=== PATIENT | male | born 1975 | race Two or more races ===

== ENCOUNTER → 2020-07-06 09:50 | Outpatient (BNVA) | payer OTHER, MEDICAID, SELFPAY | PROVIDERS: PCP Internal Medicine; Visit Provider Anesthesiology | DX: M79.7 Fibromyalgia (principal); M47.812 Spondylosis without myelopathy or radiculopathy, cervical region; M47.816 Spondylosis without myelopathy or radiculopathy, lumbar region | CPT/HCPCS: 99203 ==

== ENCOUNTER → 2020-08-03 10:33 | Outpatient (BNVA) | payer OTHER, MEDICAID, SELFPAY | PROVIDERS: PCP Internal Medicine; Visit Provider Anesthesiology | DX: M79.7 Fibromyalgia (principal); M47.812 Spondylosis without myelopathy or radiculopathy, cervical region; M47.816 Spondylosis without myelopathy or radiculopathy, lumbar region | CPT/HCPCS: 99212 ==

== ENCOUNTER → 2020-11-03 09:43 | Outpatient (BNVA) | payer OTHER, MEDICAID, SELFPAY | PROVIDERS: PCP Internal Medicine; Visit Provider Urology ==

== ENCOUNTER 2020-11-13 08:35 | Day surgery (SDC) | payer OTHER, SELFPAY ==
--- NOTE | 2020-11-12 09:35 | HO.ANESPROP2 ---
Documented by User: Subha Nichole 11/12/20 09:51 HPI - Anesthesia Eval Consult details Narrative: 45yo M for Spinal Cord Simulation Trial, [facility] Active Problems Active Problems: All Active Problems (Updated 11/03/20 @ 09:58 by Natalio Todd MD) Male infertility (Acute) Hypogonadism in male (Acute) History of hip surgery (Acute) Bipolar 1 disorder (Acute) Spondylosis of lumbar region without myelopathy or radiculopathy (Acute) Spondylosis of cervical region without myelopathy or radiculopathy (Acute) Fibromyalgia (Acute) Past Medical History Medical History Bipolar 1 disorder Chronic headaches Diastolic dysfunction Fibromyalgia Hepatic steatosis HTN (hypertension) Hypertriglyceridemia Hypogonadism in male IBS (irritable bowel syndrome) IDDM (insulin dependent diabetes mellitus) Obesity DANIE (obstructive sleep apnea) Psychogenic nonepileptic seizure Smoker 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 Surgical History Surgical History History of hip surgery Social History Social History Smoking Status: Current every day smoker Packs Per Day: 1 Cigarettes Per Day: 20.0 Use of substances other than those prescribed or required for medical reasons: No Advance Directives: No Advance Directives Information Provided: Yes Meds Allergies Allergy/AdvReac Type Severity Reaction Status Date / Time shell fish Allergy Unknown Unknown Uncoded 11/03/20 09:44 Exam Exam Date and Time: November 12, 2020 0935 Assessment and Plan Assessment Anesthesia Assessment: Chart Reviewed Documented by User: Demi Chaidez 11/13/20 11:07 PMFSH Past Medical History Medical History Bipolar 1 disorder Chronic headaches Diastolic dysfunction Fibromyalgia Hepatic steatosis HTN (hypertension) Hypertriglyceridemia Hypogonadism in male IBS (irritable bowel syndrome) IDDM (insulin dependent diabetes mellitus) Obesity DANIE (obstructive sleep apnea) Psychogenic nonepileptic seizure Smoker 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
--- NOTE | ~2020-11-13 | FL_ITS ---
EXAMINATION: XR FLUOROSCOPY WITH IMAGES CLINICAL INFORMATION: Spinal stim trial COMPARISON: None. TECHNIQUE: Fluoroscopy performed by . Fluoroscopy time: 2.9 minutes DAP: 18.7 mGycm2 Images: 4 FINDINGS: FINDINGS: Intraoperative fluoroscopy was provided for use by Dr. Larson. A radiologist was not present during imaging. Today's dictation is only for administrative purposes to document intraoperative fluoroscopy. FL/FL guidance in OR IMPRESSION: Intraoperative fluoroscopy provided for use by Dr. Larson. Please see procedure note for details findings.
[2020-11-13 10:16] VITALS: BMI 27.8
[2020-11-13 10:31] LABS: Glucose, Whole Blood 95 mg/dL (60-115)
--- NOTE | 2020-11-13 10:43 | MHC.SHP ---
Pre-Procedural Eval Section A The patient is an INPATIENT: No Changes since office visit: Yes Patient answered all questions The History & Physical has been completed within 30 days and I have reviewed it.: No Section B Chief Complaint: spondylosis without myelopathy Details of Present Illness: As above Relevant Family History (Specify if Yes): No Relevant Social History: None Present Medications: see Short Stay Collaborative assessment Medical History: No relevant PMH History of Previous Operations: No relevant previous surgery Allergies: Allergies Allergy/AdvReac Type Severity Reaction Status Date / Time shell fish Allergy Unknown Unknown Uncoded 11/03/20 09:44 Review of Systems Sugical H&P ROS: Negative: Constitution, Cardiovascular, Respiratory, Neurological, Psychiatric, Hem-Onc, Allergic/Immunologic, Gastrointestinal, Genitourinary, Musculoskeletal, Integumentary, Endocrine and Eyes/Ears/Nose/Throat Exam Surgical H&P Exam: Normal: HEENT, Normal: Heart, Normal: Lungs, Normal: Extremities, Normal: Abdomen, Normal: Skin and Normal: Neurological Plan Diagnosis/Plan: Unchanged I have reviewed the history and physical and performed a pertinent physical examination on my patient. No changes have occurred unless specified.
[2020-11-13 10:44] VITALS: BP 150/82; PULSE 106; RESP 18; TEMP 36.4; O2SAT 100
[2020-11-13] MEDS: Lactated Ringers 1,000 ML 100 ML IVCONT (12:26)
[2020-11-13 13:47] VITALS: BP 147/90; PULSE 100; RESP 18; TEMP 36.6; O2SAT 98
--- NOTE | 2020-11-13 13:57 | PM.OP ---
Brief Operative Note Date of Service: 11/13/20 Pre-op diagnosis: Radiculopathy lumbar spine Post-op diagnosis: same Procedure: Trial of [employer] spinal cord stimulation Surgeon: Matt Larson MD Anesthesia: MAC Estimated blood loss (mL): 6 Pathology: none sent Condition: stable Disposition: PACU
--- NOTE | 2020-11-13 13:59 | P.OP_ITS ---
Operative Note Operative Note Date of Service: 11/13/20 Narrative: After obtaining informed consent patient was brought to the operating room, HE was positioned prone on operating table, [employer] monitors were applied and patient was deeply sedated. The patient was taken inside of the operating room where she was positioned prone operating table. Time-out was performed delineating correct site, side, the nature of the procedure, patient's allergy, preoperative antibiotic if needed. All operating room staff was participating in OR time-out procedure. Patient's entire back was prepped with ChloraPrep twice and draped with full body fenestrated drape. Sterilely draped C-arm was brought over operating field and sqare picture of L1 L2 vertebrae as were demonstrated on the screen. Missing of the left rib at the T12 vertebra was noted on the picture. Attention FIRST was concentrated on the left L1-L2 epidural interspace. The location of the projection of the right pedicle center of the _ L3 vertebra was found on the skin using C-arm. This location was injected with mixture of lidocaine 2% and Marcaine 0.5% 5 cc. After that 11 blade was used to make a richard on the skin. Ten cm 14 gauge curved introducer epidural needle was inserted through the richard and advanced to L1-L2 epidural interspace. The advancement of the needle was performed on anterior posterior and lateral views. Guitar wire and loss of resistance technique were used to locate epidural space. When guitar wire was spread in the epidural fashion, epidural lead was inserted through the skin and it was advanced to T8 position SLIGHTLY RIGHT OF THE MIDLINE. After that location of the projection of the LEFT pedicle center of the L3 vertebra was found on the skin using C-arm. This location was injected with mixture of lidocaine 2% and Marcaine 0.5% 5 cc. After that 11 blade was used to make a richard on the skin. Ten cm 14 gauge curved introducer epidural needle was inserted through the richard and advanced to L1-L2 epidural interspace. The ad vancement of the needle was performed on anterior posterior and lateral views. Guitar wire and loss of resistance technique were used to locate epidural space. When guitar wire was spread in the epidural fashion, epidural lead was inserted through the needle and advanced to the T8 position slightly left to the midline. At this moment patient was awaken and the epidural leads were connected to the testing device. The patient reported stimulation corresponding to her pain. After satisfactory position of the leads were established the needles were withdrawn, the stylette wires were removed from the epidural leads. The anchoring devices were dislodged on the leads and advanced to the level of the skin. The anchoring devices were sutured with two 0-0 silk sutures to the skin of the patient. The leads were connected to testing device. Bacitracin ointment was applied to the entrance point of bilateral needles. Sterile dressing was applied to the patient's back. The testing device was also taped to the patient's back. Upon completion of the procedure the patient was taken to PACU where HE recovered and UNEVENTFULLY, HE WENT HOME WITHOUT IMMEDIATE COMPLICATIONS.
[2020-11-13 14:02] VITALS: BP 136/89; PULSE 95; RESP 18; O2SAT 99
[2020-11-13 14:17] VITALS: BP 153/94; PULSE 95; RESP 18; O2SAT 99
[2020-11-13 14:32] VITALS: BP 145/90; PULSE 96; RESP 20; O2SAT 99
== END 2020-11-13 15:18 | disposition home or self-care (01) ==
PROVIDERS: PCP Internal Medicine; Visit Provider Anesthesiology
PROC: (CPT 63650; principal; 2020-11-13 10:40)
DX: M47.816 Spondylosis without myelopathy or radiculopathy, lumbar region (principal); M47.812 Spondylosis without myelopathy or radiculopathy, cervical region; M79.7 Fibromyalgia; F31.9 Bipolar disorder, unspecified; G47.33 Obstructive sleep apnea (adult) (pediatric); I10 Essential (primary) hypertension; E11.9 Type 2 diabetes mellitus without complications; Z79.4 Long term (current) use of insulin; Z79.899 Other long term (current) drug therapy; F17.210 Nicotine dependence, cigarettes, uncomplicated
CPT/HCPCS: 63650 ×2; 82947; C1713; C1778; C1897; J0690; J2250

== ENCOUNTER → 2020-11-19 13:38 | Outpatient (BNVA) | payer OTHER, SELFPAY | PROVIDERS: PCP Internal Medicine; Visit Provider Anesthesiology | DX: M79.7 Fibromyalgia (principal); M47.812 Spondylosis without myelopathy or radiculopathy, cervical region; M47.816 Spondylosis without myelopathy or radiculopathy, lumbar region; Z79.899 Other long term (current) drug therapy | CPT/HCPCS: 99212 ==

== ENCOUNTER → 2020-12-24 09:49 | Outpatient (BNVA) | payer OTHER, SELFPAY | PROVIDERS: PCP Internal Medicine; Visit Provider Urology | DX: N32.0 Bladder-neck obstruction (principal); R33.9 Retention of urine, unspecified | CPT/HCPCS: 99212 ==

== ENCOUNTER 2021-02-19 06:06 | Day surgery (SDC) | payer OTHER, SELFPAY ==
[2021-02-12 12:49] VITALS: BMI 28.7
--- NOTE | ~2021-02-19 | FL_ITS ---
EXAMINATION: XR FLUOROSCOPY WITH IMAGES CLINICAL INFORMATION: Spinal stimulator implantation COMPARISON: 11/13/2020 TECHNIQUE: Fluoroscopy performed by Dr. Matt Larson. Fluoroscopy time: 3.6 minutes DAP: 12.8 Gycm2 Images: 2 FL/FL guidance in OR FINDINGS/IMPRESSION: Images demonstrate spinal stimulator leads projecting over the dorsal epidural space of the lower thoracic spine at the level of T10-T11. Please see operative report.
[2021-02-19 06:38] LABS: Glucose, Whole Blood 119 mg/dL (60-115)
[2021-02-19 06:42] VITALS: BP 141/87; PULSE 79; RESP 20; TEMP 36.6; O2SAT 100
--- NOTE | 2021-02-19 07:00 | MHC.SHP ---
Pre-Procedural Eval Section A The patient is an INPATIENT: No Changes since office visit: Yes Patient answered all questions The History & Physical has been completed within 30 days and I have reviewed it.: No Section B Chief Complaint: Spondylosis of lumbar region Details of Present Illness: as above Relevant Family History (Specify if Yes): No Relevant Social History: None Present Medications: None Medical History: No relevant PMH History of Previous Operations: No relevant previous surgery Allergies: Allergies Allergy/AdvReac Type Severity Reaction Status Date / Time shell fish Allergy Severe Swelling Uncoded 02/12/21 12:51 Review of Systems Sugical H&P ROS: Negative: Constitution, Cardiovascular, Respiratory, Neurological, Psychiatric, Hem-Onc, Allergic/Immunologic, Gastrointestinal, Genitourinary, Musculoskeletal, Integumentary, Endocrine and Eyes/Ears/Nose/Throat Exam Surgical H&P Exam: Normal: HEENT, Normal: Heart, Normal: Lungs, Normal: Extremities, Normal: Abdomen, Normal: Skin and Normal: Neurological Plan Diagnosis/Plan: Unchanged I have reviewed the history and physical and performed a pertinent physical examination on my patient. No changes have occurred unless specified.
--- NOTE | 2021-02-19 07:08 | HO.ANESPROP2 ---
[facility] Active Problems Active Problems: All Active Problems (Updated 02/12/21 @ 13:02 by Taryn Davenport) Male infertility (Acute) Urinary retention with incomplete bladder emptying (Acute) Bladder outlet obstruction (Acute) Fibromyalgia (Acute) Spondylosis of cervical region without myelopathy or radiculopathy (Acute) Spondylosis of lumbar region without myelopathy or radiculopathy (Acute) Past Medical History Medical History (Updated 02/12/21 @ 13:02 by Taryn Davenport) Back pain Bipolar 1 disorder Chronic headaches Diastolic dysfunction Fibromyalgia H/O urinary retention Hepatic steatosis HTN (hypertension) Hypertriglyceridemia Hypogonadism in male IBS (irritable bowel syndrome) IDDM (insulin dependent diabetes mellitus) Leg pain Obesity DANIE (obstructive sleep apnea) Psychogenic nonepileptic seizure Smoker 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 Weight loss, intentional Surgical History Surgical History (Updated 02/12/21 @ 13:00 by Taryn Davenport) History of esophagogastroduodenoscopy (EGD) History of hip surgery History of total right hip arthroplasty Hx of colonoscopy Social History Social History Patient Tobacco Use Status: Current everyday Tobacco user Tobacco use type: Cigarette Cigarette Packs Per Day: 1 Cigarettes Per Day: 6 Years Smoked: 30 Smoked in Last 30 Days: Yes Are you DNR?: No Advance Directives: No Advance Directives Information Provided: No Advance Directives on File: No Meds Allergies Allergy/AdvReac Type Severity Reaction Status Date / Time shell fish Allergy Severe Swelling Uncoded 02/12/21 12:51 Home Medications Medication Instructions Recorded Confirmed Last Taken Type insulin glargine [Lantus U-100 60 unit SUBCUT QAM 02/12/21 02/12/21 Unknown History Insulin] propranolol 1 tab PO BID 02/12/21 02/19/21 02/19/21 04:30 History Exam Exam Date and Time: February 19, 2021 0708 Height,Weight and Vital Signs: Height 5 ft 10 in Weight 90.718 kg Last Vital Signs Temp 97.8 F 02/19/21 06:42 Pulse 79 02/19/21 06:42 Resp 20 02/19/21 06:42 BP 141/87 H 02/19/21 06:42 Pulse Ox 100 02/19/21 06:42 Pertinent Lab Results Pertinent Lab Results: Laboratory Tests 02/19/21 06:34 POC Glucose 119 H Airway Mallampati Class: II TM Dist: >3cm Neck ROM: Full
[2021-02-19] MEDS: Lactated Ringers 1,000 ML 100 ML IVCONT (07:13)
[2021-02-19 09:25] VITALS: BP 116/80; PULSE 90; RESP 18; TEMP 36.5; O2SAT 95
--- NOTE | 2021-02-19 09:30 | P.BOP_ITS ---
Brief Operative Note Date of Service: 02/19/21 Pre-op diagnosis: spondylosis lumbar spine Post-op diagnosis: same Procedure: implantation of the [employer]. Implants: 2 epidural stimulation leads and [employer] Battery Surgeon: Matt Larson MD Anesthesia: MAC Was an Senior Professional Services Consultant used for this Procedure?: No Estimated blood loss (mL): 20 Pathology: none sent Condition: stable Disposition: PACU
--- NOTE | 2021-02-19 09:30 | W.PM.OPN ---
Operative Note Operative Note Date of Service: 02/19/21 Narrative: Implant spinal cord stimulator YOHO. Mr. Chacon -is very pleasant 45 years old gentlemanwho came today into the operating room for implantation of spinal cord stimulator for the treatment of pain related to degenerative disc disease and spondylosis of the lumbar spine. he had successful trial of spinal cord stimulation. Preoperatively patient received 2. g cefazolin _approximately 30 minutes before the procedure. After obtaining informed consent patient was brought to the operating room, he was positioned prone on operating table, [place] [employer] monitors were applied and patient was deeply sedated. Time-out was performed delineating correct site, side, the nature of the procedure, patient's allergy, preoperative antibiotic. All operating room staff was participating in OR time-out procedure. Patient's entire back was prepped with ChloraPrep twice and draped with full body drape including Ioban film. Sterilely draped C-arm was brought over operating field and sqare picture of T12, L1, L2 vertebrae as were demonstrated on the screen. THE PROJECTION OF L2-L3 SPINAL PROCESSES TO THE SKIN WERE INFILTRATED WITH LIDOCAINE 2% MIXED WITH BUPIVACAINE 0.5%. Six CM LONG VERTICAL INCISION using 15 blade scalpel WAS PERFORMED IN STRICT MIDLINE VERTICAL FASHION. THOROUGH HEMOSTASIS WAS PERFORMED using electrocautery. Thorough tissue dissections was performed until prevertebral fascia was freed from overlying tissues. Attention FIRST was concentrated on the RIGHT L1-L2 epidural interspace. The location of the projection of the right pedicle center of the L2 vertebra was found on the prevertebral fascia using C-arm. This location was injected with mixture of lidocaine 2% and Marcaine 0.5% 5 cc in approximate direction of needle advancement.. After that 10 cm 14 gauge Straight introducer epidural needle was inserted through the fascia and advanced toward L1-L2 epidural interspace. The advancement of the needle was performed on anterior posterior and lateral views. Guitar wire and loss of resistance technique were used to locate epidural space. When guitar wire was spread in the epidural fashion, epidural lead was inserted through the skin and it was advanced to mid T8 position POSTERIOR EPIDURAL SPACE slightly right TO THE MIDLINE. After that location of the projection of the LEFT pedicle center of the L2 vertebra was found -using C-arm. This location was injected with mixture of lidocaine 2% and Marcaine 0.5% 5 cc.. . 10 cm 14 gauge straight introducer epidural needle was inserted through the fascia and advanced to T12-L1 epidural interspace. The advancement of the needle was performed on anterior posterior and lateral views. Guitar wire and loss of resistance technique were used to locate epidural space. When guitar wire was spread in the epidural fashion, epidural lead was inserted through the needle and advanced to the mid-T8 POSTERIOR EPIDURAL SPACE SLIGHTLY left TO THE MIDLINE. THE LOCATION OF BOTH LEADS WAS VERIFIED ON ANTERIOR POSTERIOR AND LATERAL VIEWS. At this moment patient was awaken and the epidural leads were connected to the testing device. The patient reported stimulation corresponding to his pain. After satisfactory position of the leads were established the needles were withdrawn, the stylette wires were removed from the epidural leads. The anchoring devices were dislodged on the leads and advanced to the level of the skin. The anchoring devices were advanced along the epidural leads and dislodged and epidural leads at the level of prevertebral fascia. They were sutured to prevertebral fascia with 2 separate Tycron 1.0 sutures per each anchoring device. anchoring screw was tight until 3 clicks were heard on each anchoring device.After that the wound was irrigated with copious amount of Vancomycin containing normal saline and packed with Vancomycin soaked 4 x 4. After that attention was concentrated on the right upper buttock of the patient where He wanted battery to be implanted. 6 cm long horizontal incision was performed 3 cm below the TOP right iliac crest. Thorough hemostasis was obtained. The wound was irrigated with copious amount of Vancomycin contained normal saline. Tunneling device was used to connect the 2 wounds and epidural leads were dislodged into side wound. They were connected to the [employer] for outlets battery and locked with a locking screwdriver device. the care was taken also to make sure that plaques for upper outlets screwed in place. After that the anchoring sutures ethibond were applied in the most superior medial and most superior lateral corners of the wound. After that they were connected to the anchoring holes on the body of the battery, the epidural leads were gathered behind the body of the [employer] battery, the battery and the leads were inserted into the pocket wound and after that the anchoring 2 sutures were tied. The wounds were irrigated again with Vancomycin containing normal saline, thorough hemostasis was checked, and after that the wounds were closed using 0 Vicryl. After that the skin edges wore approximated using 2 0 Vicryl, adriana were applied to the wounds at the level of the skin. Bacitracin ointment was applies to the level of the adriana and sterile dressings were applied to the staple lines. MediPort tape was used to hold the dressing to the patient's skin. Abdominal binder to wear was provided to the patient. At this moment patient was awaken and transferred to the bed. He was recovering uneventfully in PACU.
[2021-02-19 09:40] VITALS: BP 119/93; PULSE 91; RESP 17; TEMP 36.3; O2SAT 98
== END 2021-02-19 11:09 | disposition home or self-care (01) ==
PROVIDERS: PCP Internal Medicine; Visit Provider Anesthesiology
PROC: (CPT 63685; principal; 2021-02-19 07:30)
DX: M47.816 Spondylosis without myelopathy or radiculopathy, lumbar region (principal); M47.812 Spondylosis without myelopathy or radiculopathy, cervical region; M79.7 Fibromyalgia; M51.36 Other intervertebral disc degeneration, lumbar region; M54.89 Other dorsalgia; M79.606 Pain in leg, unspecified; I10 Essential (primary) hypertension; G47.33 Obstructive sleep apnea (adult) (pediatric); G40.89 Other seizures; F31.9 Bipolar disorder, unspecified; E11.9 Type 2 diabetes mellitus without complications; Z79.4 Long term (current) use of insulin; F17.210 Nicotine dependence, cigarettes, uncomplicated
CPT/HCPCS: 63685; 63650 ×2; 82947; C1713; C1778; C1787; C1820; J0690; J2250; J3010; J3370

== ENCOUNTER → 2021-02-25 11:08 | Outpatient (BNVA) | payer OTHER, SELFPAY | PROVIDERS: PCP Internal Medicine; Visit Provider Anesthesiology | DX: M79.7 Fibromyalgia (principal); M47.812 Spondylosis without myelopathy or radiculopathy, cervical region; M47.816 Spondylosis without myelopathy or radiculopathy, lumbar region | CPT/HCPCS: 99212 ==

== ENCOUNTER → 2021-03-04 11:14 | Outpatient (BNVA) | payer OTHER, SELFPAY | PROVIDERS: PCP Internal Medicine; Visit Provider Anesthesiology | DX: M47.812 Spondylosis without myelopathy or radiculopathy, cervical region (principal); M47.816 Spondylosis without myelopathy or radiculopathy, lumbar region; M79.7 Fibromyalgia | CPT/HCPCS: 99212 ==

== ENCOUNTER 2021-05-11 09:41 | Outpatient (REF) | payer OTHER, SELFPAY ==
[2021-05-11 12:02] LABS: Prostate Specific Antigen 0.33 ng/mL (<0.05-4.0)
[2021-05-18 14:51] LABS: Testosterone, Free 78.7 pg/mL (35.0-155.0); Testosterone, Total 361 ng/dL (250-1100)
[2021-05-18 18:46] LABS: Estradiol Ultra Sensitive 32 pg/mL (< OR = 29)
== END 2021-05-11 09:42 | disposition home or self-care (01) ==
LOC: HO.LAB 09:41
PROVIDERS: PCP Internal Medicine; Visit Provider Urology
DX: Z12.5 Encounter for screening for malignant neoplasm of prostate (principal); E29.1 Testicular hypofunction; N13.8 Other obstructive and reflux uropathy; N40.1 Benign prostatic hyperplasia with lower urinary tract symptoms
CPT/HCPCS: 36415; 82670; 84153; 84402; 84403

== ENCOUNTER → 2021-05-14 10:24 | Outpatient (BNVA) | payer OTHER, SELFPAY | PROVIDERS: PCP Internal Medicine; Visit Provider Urology ==

== ENCOUNTER → 2021-05-19 15:42 | Outpatient (BNVA) | payer OTHER, SELFPAY | PROVIDERS: PCP Internal Medicine; Visit Provider Urology ==

== ENCOUNTER → 2021-11-26 13:08 | Outpatient (BNVA) | payer OTHER, SELFPAY | PROVIDERS: PCP Internal Medicine; Visit Provider Urology ==

== ENCOUNTER → 2022-06-23 14:22 | Outpatient (BNVA) | payer OTHER, SELFPAY | PROVIDERS: PCP Internal Medicine; Visit Provider Internal Medicine Endocrinology, Diabetes & Metabolism | DX: E11.65 Type 2 diabetes mellitus with hyperglycemia (principal) | CPT/HCPCS: 82947; 99202 ==

== ENCOUNTER → 2022-07-08 12:17 | Outpatient (BNVA) | payer OTHER, SELFPAY | PROVIDERS: PCP Internal Medicine; Visit Provider Registered Nurse Diabetes Educator | DX: E11.65 Type 2 diabetes mellitus with hyperglycemia (principal) | CPT/HCPCS: 99211 ==

== ENCOUNTER 2022-09-26 09:00 | Outpatient (REF) | payer OTHER, SELFPAY ==
[2022-09-26 10:09] LABS: Hematocrit 41.2 % (42.0-52.0); Hemoglobin 13.4 g/dl (14.0-18.0); Mean Corpuscular HGB Conc 32.5 g/dl (31.0-36.0); Mean Corpuscular Hemoglobin 29.9 pg (27.0-33.0); Mean Platelet Volume 10.3 fL (9.4-12.4); Platelet Count 265 X10*3/uL (160-400); Red Blood Count 4.48 X10*6/uL (4.60-5.80); Red Cell Distribution Width 13.7 % (11.0-16.0); White Blood Count 11.1 X10*3/uL (4.8-10.8)
[2022-09-26 11:06] LABS: Creatinine Urine 61.23 mg/dL; Microalbum/Creatinine Ratio Ur 26.1 ug/mg cr
[2022-09-26 11:31] LABS: Prostate Specific Antigen 0.83 ng/mL (<0.05-4.0)
[2022-10-02 17:43] LABS: Testosterone, Total 317 ng/dL (250-1100)
[2022-10-03 01:14] LABS: Estradiol Ultra Sensitive 26 pg/mL (< OR = 29)
== END 2022-09-26 09:01 | disposition home or self-care (01) ==
LOC: HO.LAB 09:00
PROVIDERS: Absent Provider Internal Medicine Endocrinology, Diabetes & Metabolism; PCP Internal Medicine; Visit Provider Urology
DX: Z12.5 Encounter for screening for malignant neoplasm of prostate (principal); E29.1 Testicular hypofunction; E11.65 Type 2 diabetes mellitus with hyperglycemia
CPT/HCPCS: 36415; 82043; 82670; 84153; 84403; 85027

== ENCOUNTER → 2022-09-27 12:18 | Outpatient (BNVA) | payer OTHER, SELFPAY | PROVIDERS: PCP Internal Medicine; Visit Provider Internal Medicine Endocrinology, Diabetes & Metabolism | DX: E11.65 Type 2 diabetes mellitus with hyperglycemia (principal); Z79.4 Long term (current) use of insulin | CPT/HCPCS: 82947; 83036; 99212 ==

== ENCOUNTER → 2022-10-25 08:51 | Outpatient (BNVA) | payer OTHER, SELFPAY | PROVIDERS: PCP Internal Medicine; Visit Provider Dietitian, Registered | DX: E11.65 Type 2 diabetes mellitus with hyperglycemia (principal); Z79.84 Long term (current) use of oral hypoglycemic drugs | CPT/HCPCS: 97802 ==

== ENCOUNTER → 2023-01-24 13:34 | Outpatient (BNVA) | payer OTHER, SELFPAY | PROVIDERS: PCP Internal Medicine; Visit Provider Internal Medicine Endocrinology, Diabetes & Metabolism | DX: E11.65 Type 2 diabetes mellitus with hyperglycemia (principal); E78.5 Hyperlipidemia, unspecified; Z79.4 Long term (current) use of insulin; Z79.899 Other long term (current) drug therapy | CPT/HCPCS: 82947; 83036; 99212 ==

== ENCOUNTER → 2023-02-01 13:28 | Outpatient (BNVA) | payer OTHER, SELFPAY | PROVIDERS: PCP Internal Medicine; Visit Provider Urology | DX: E29.1 Testicular hypofunction (principal); N32.0 Bladder-neck obstruction; N40.1 Benign prostatic hyperplasia with lower urinary tract symptoms; N13.8 Other obstructive and reflux uropathy; E11.69 Type 2 diabetes mellitus with other specified complication; N52.1 Erectile dysfunction due to diseases classified elsewhere; N53.14 Retrograde ejaculation; Z79.82 Long term (current) use of aspirin; Z79.899 Other long term (current) drug therapy | CPT/HCPCS: 51798; 99212 ==

== ENCOUNTER 2023-06-14 12:23 | Outpatient (AMB) | payer OTHER, SELFPAY ==
[2023-06-14 12:30] VITALS: BP 102/68; PULSE 51; BMI 29.3
--- NOTE | 2023-06-14 12:30 | MHC.OFFVIS ---
Intake Vital Signs 06/14/23 12:30 Height 5 ft 11 in Weight 209 lb 14.081 oz BMI 29.3 BP 102/68 Blood Pressure Location Lt brachial Position Sitting Pulse 51 Pulse Source Pulse Oximeter Intake Visit Reasons: DM Intake Note: Patient presents today to follow up on Type Diabetes Mellitus. Patient receives DME supplies through: Last Diabetic Eye exam: 11/2022 Last Podiatry Visit: None Random Glucose: 73 mg/dl HgA1C:7.2% Contract Technical Writer Required: Yes Contract Technical Writer Language: Director Health Name: [facility]- medical staff Information Interpreted: non-clinical & clinical Accompanied by: Self / Same As Patient Allergies NSAIDS (Non-Steroidal Anti-Inflamma Allergy (Unknown, Verified 06/14/23 12:42) Unknown shell fish Allergy (Severe, Uncoded 02/01/23 14:10) Swelling HPI HPI Comments History of Present Illness Details 47 YO M who is seen in consultation for T2DM at the request of PCP. Initially diagnosed with T2DM in 5 yrs . Was initially started on treatment with metformin.It stopped working Current regimen Tresiba 120 units Humalog 100-149 31 unit, 150-199 36 units, by 3 unit increments to >400scale Trulicity 4.5 mg Jardiance 10 mg QD . metformin 1000 mg BID Unfortunately, the patient did not bring log book or sent to the follow-up appointment Not Reports low sugars Family history of T2DM in mother Type 2 DM. Has eyes checked yearly, last eye exam 6 mos ago , denies retinopathy. Denies neuropathy, ,does not sees podiatry. Denies nephropathy, on VANESSA/ARB. Has HLD, on statin. Denies CAD. saw diabetes education as well as nutritional counseling. 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 Fibromyalgia Surgical History History of esophagogastroduodenoscopy (EGD) History of hip surgery History of total right hip arthroplasty Hx of colonoscopy Family History Mother Alzheimer's dementia Diabetes Father Arthritis Social History (Updated 09/27/22 @ 12:38 by JOSE Shipley) Household Members: None Alcohol intake: never Patient Tobacco Use Status: Current everyday Tobacco user Tobacco use type: Cigarette Cigarette Packs Per Day: 1 Cigarettes Per Day: 6 Years Smoked: 30 Physical Exam Vital Signs: Last Vital Signs Pulse 51 06/14/23 12:30 BP 102/68 06/14/23 12:30 BMI result Body Mass Index 29.3 Absence of Cushingoid features. Absence of acromegalic features. Neck exam reveals nl size thyroid about 15 gms. No thyroid nodules palpable. No carotid bruits present. Lungs CTA. Heart S1 S2, Reg R/R. No M/R/ G. Skin exam reveals absence of vitiligo or acanthosis nigricans. Abdominal exam reveals Soft NT/ND with NA BS. No organomegaly present. Neck Other: . Extrem Other: Visual exam of foot performed. No ulcerations or open lesions. No onchomycosis, no callouses.Pulses 2 + distally Sensation intact to monofilament exam. Vibratory sensation sensed is intact with 128 Hz tuning fork Results AMB Hemoglobin A1c AMB Hemoglobin A1c 7.2 % Last Edit by Gabriela Richards on 06/14/23 12:58 Results Reviewed Results Reviewed: 06/14/23 12:47 Glucose, Whole Blood Routine Laboratory Last Values Glucose (Clinic) 73 mg/dL (60-115) 06/14/23 12:47 Hgb A1c (Clinic) 7.2 % (4.0-6.0) H 06/14/23 12:51 Assessment & Plan Assessment & Plan (1) Uncontrolled type 2 diabetes mellitus with hyperglycemia: Code(s): E11.65 - Type 2 diabetes mellitus with hyperglycemia Plan: This a 47-year-old male with history of type 2 diabetes being treated with basal-bolus insulin, metformin Jardiance, Trulicity with excellent improved glycemic control and no known microvascular or macrovascular complications The plan is to continue the current management. I increase the Jardiance 25 mg and will recheck basic metabolic panel in 10 days Continue to push dietary and exercise modification. Since no data was available, could not make any adjustments in the insulin regimen Orders: Orders AMB Hemoglobin A1c Today E11.65 - Type 2 diabetes mellitus with hyperglycemia Basic Metabolic Panel 10 Days E11.65 - Type 2 diabetes mellitus with hyperglycemia Medications: New empagliflozin (Jardiance) 25 mg PO DAILY 30 tabs 5RF Changed From insulin syringe-needle U-100 (BD Insulin Syringe) As directed 30 ea 0RF E29.1 - Testicular hypofunction To insulin syringe-needle U-100 As directed 30 ea 0RF E29.1 - Testicular hypofunction Refilled insulin degludec (Tresiba FlexTouch U-200 insulin) 120 units (0.6 mL) subcut DAILY 18 mL 5RF insulin lispro 30 - 48 units (0.3 - 0.48 mL) subcut TID 30 mL 0RF dulaglutide (Trulicity) 4.5 mg (0.5 mL) subcut QWEEK 2 mL 5RF metformin 1,000 mg PO BID 60 tabs 2RF Coding Level of Care Code Est Pt Level 4 (91814) Diagnoses Uncontrolled type 2 diabetes mellitus with hyperglycemia E11.65
[2023-06-14 12:52] LABS: Glucose, Whole Blood 73 mg/dL (60-115)
== END 2023-06-14 13:09 | disposition home or self-care (01) ==
PROVIDERS: PCP Internal Medicine; Visit Provider Internal Medicine Endocrinology, Diabetes & Metabolism
DX: E11.65 Type 2 diabetes mellitus with hyperglycemia (principal)
CPT/HCPCS: 99214

== ENCOUNTER → 2023-06-14 12:23 | Outpatient (BNVA) | payer OTHER, SELFPAY | PROVIDERS: PCP Internal Medicine; Visit Provider Internal Medicine Endocrinology, Diabetes & Metabolism | DX: E11.65 Type 2 diabetes mellitus with hyperglycemia (principal) | CPT/HCPCS: 82947; 83036; 99212 ==

== ENCOUNTER 2023-08-21 07:42 | Outpatient (REF) | payer OTHER, SELFPAY ==
[2023-08-21 08:36] LABS: Hematocrit 35.9 % (42.0-52.0); Hemoglobin 11.7 g/dl (14.0-18.0); Mean Corpuscular HGB Conc 32.6 g/dl (31.0-36.0); Mean Corpuscular Hemoglobin 30.9 pg (27.0-33.0); Mean Corpuscular Volume 94.7 fL (80.0-98.0); Mean Platelet Volume 10.7 fL (9.4-12.4); NRBC Pct Auto 0.1 /100WBC (0.0-0.2); Platelet Count 270 X10*3/uL (160-400); Red Blood Count 3.79 X10*6/uL (4.60-5.80); Red Cell Distribution Width 16.7 % (11.0-16.0)
[2023-08-21 09:17] LABS: Prostate Specific Antigen 1.12 ng/mL (<0.05-4.0)
[2023-08-25 14:28] LABS: Testosterone, Total 198 ng/dL (250-1100)
== END 2023-08-21 07:43 | disposition home or self-care (01) ==
LOC: HO.LAB 07:42
PROVIDERS: Absent Provider Urology; PCP Internal Medicine; Visit Provider Internal Medicine Endocrinology, Diabetes & Metabolism
DX: Z12.5 Encounter for screening for malignant neoplasm of prostate (principal); E29.1 Testicular hypofunction
CPT/HCPCS: 36415; 84153; 84403; 85027

== ENCOUNTER 2023-09-13 14:23 | Outpatient (AMB) | payer OTHER, SELFPAY ==
--- NOTE | 2023-09-13 14:31 | A.OFFVIS_ITS ---
Intake Intake Visit Reasons: 6m/labs Intake Note: Patient presents today for a follow-up on Labs Results: Meds- Prasozin Allergies to Antibiotic- No Known Allergies Blood Thinner- Aspirin Cleaning And Washing Equipment Operator Required: Yes Cleaning And Washing Equipment Operator Language: Parking Officer Name: Kinza- medical staff Information Interpreted: non-clinical & clinical Accompanied by: Self / Same As Patient Allergies NSAIDS (Non-Steroidal Anti-Inflamma Allergy (Unknown, Verified 09/13/23 14:32) Unknown shell fish Allergy (Severe, Uncoded 09/13/23 14:32) Swelling HPI HPI Comments History of Present Illness Details Abhinav Chacon is a 48 year olf thai speaking male. He has been followed by Dr Todd for - hypogonadism - bladder outlet obstruction - erectile dysfunction in setting of denita dai Certified fine grader present. Here for telehealth follow up to review labs. Video Attempted I have discussed testosterone level is low. ---08/21/23--198 I will send script for testosterone replacement. The patient is on Cialis and tamsulosin. Review of chart: Hypogonadism: Had been taking Flomax for urinary weakness Now with retrograde ejaculation Dr. Todd Discussed use of Sudafed for tightening sphincter hypogonadism diagnosed December 2015 - switched to 0.6 cc once a week. Initial symptoms include erectile dysfunction Yes improved with T decreased libido Yes improved with T change in mood/depression Yes in muscle size/strength Yes increased fatigue/malaise Yes increased abdominal fat No tender breasts/gynecomastia No hair loss No osteopenia Laboratory results baseline, low, testosterone, normal, SHBG, low, calculated bioavailable testosterone , followup December 2015 with clomid increased, testosterone, increased, calculated bioavailable testosterone > 200, increased, estradiol, T:E ratio > 10 07/03 - , testosterone 182, , calculated bioavailable testosterone 132 10/04 T 135 day before injection, 04/03 176 day before shot, 09/03 253 day before shot, 10/06 T 405 PSA 0.5, 04/05 T 544 PSA 0.3 HCT 37, - 10/07 T 560 PSA 1.1 Hct 40, 03/07 t 1100, 05/08 T 361, 10/10 T 320 (Mon) therapy included-- 12/01 - SERM - clomiphene not covered by [facility] 07/03 - T 25mg 2x a week, 10/04 T - 35mg 2x a week, 04/04 35mg 2 x a week, 04/05 , injectable exogenous testosterone 70mg 2x a week - 11/08 T 0.6cc weekly Lower urinary tract symptoms Issues with his urination alpha sacha Urinary retention No longer needing CIC Erectile dysfunction Responsive to sildenafil Switched to daily tadalafil Plan- Depo Testosterone 120 mg (0.6 mL) Repeat Testosterone levels, FH, LH, fasting glucose PFSH Medical History Uncontrolled type 2 diabetes mellitus with hyperglycemia H/O urinary retention Leg pain Back pain Weight loss, intentional Diastolic dysfunction DANIE (obstructive sleep apnea) Chronic headaches IBS (irritable bowel syndrome) Hypertriglyceridemia Hepatic steatosis Obesity Smoker Psychogenic nonepileptic seizure HTN (hypertension) IDDM (insulin dependent diabetes mellitus) Hypogonadism in male Bipolar 1 disorder Spondylosis of lumbar region without myelopathy or radiculopathy Spondylosis of cervical region without myelopathy or radiculopathy Fibromyalgia Surgical History History of total right hip arthroplasty History of esophagogastroduodenoscopy (EGD) Hx of colonoscopy History of hip surgery Family History Mother Alzheimer's dementia Diabetes Father Arthritis Social History Household Members: None Alcohol intake: never Patient Tobacco Use Status: Current everyday Tobacco user Tobacco use type: Cigarette Cigarette Packs Per Day: 1 Cigarettes Per Day: 6 Years Smoked: 30 Review of Systems Const All systems reviewed & are unremarkable except as noted in HPI and below Reports no additional complaints Eyes Reports no additional complaints ENT Reports no additional complaints Card Denies dyspnea Resp Denies cough and Denies dyspnea GI Reports no additional complaints Musc Reports no additional complaints Skin/Breast Denies rash and Denies unusual bruising Neuro Reports no additional complaints Psych Reports no additional complaints Endo Reports no additional complaints Armírez/Lymph Reports no additional complaints Aller/Immun Reports no additional complaints Assessment & Plan Assessment & Plan (1) Hypogonadism in male: Code(s): E29.1 - Testicular hypofunction Plan Depo Testosterone 120 mg (0.6 mL) Repeat Testosterone levels, FH, LH, fasting glucose Orders: Orders Testosterone, Free/Total 3 Months E29.1 - Testicular hypofunction Medications: Refilled testosterone cypionate (Depo-Testosterone) dispose of excess T 120 mg (0.6 mL) subcut QWEEK 4 mL 5RF 4 weeks E29.1 - Testicular hypofunction Patient Instructions: The patient had an opportunity to ask questions regarding treatment plan. All questions were answered. Laboratory studies were discussed and reviewed in detail. No major barriers to understanding were identified. The patient express ed understanding and agreement with the above treatment plan. The patient is aware they should contact our office by phone for worsening of their current condition or the appearance of new symptoms. Compliance is encouraged with any medications and followup testing that is ordered. It is a privilege to be allowed the opportunity to participate in the urologic care of your patient. If you have any questions or concerns regarding treatment for the above conditions please do not hesitate to contact me. The office telephone contact is [phone]. This note is constructed in part using voice recognition software. While every effort has been made to ensure accuracy shipping and receiving specialist errors may have been included. Yours sincerely, Carissa Majano MD Telehealth Telehealth Location of provider rendering services: practice address Location of patient: address on file Patient Identification confirmed using: Name, : Yes Telehealth method: voice only Patient verbally consented to treatment: Yes Patient verbally consented to billing insurance company: Yes Patient informed of any privacy concerns related to visit: Yes Minutes spent on Phone/Video with Pt.: 18 Coding Level of Care Code Tele Est Pt Level 4 (49501) Diagnoses Hypogonadism in male E29.1
== END 2023-09-13 15:49 | disposition home or self-care (01) ==
LOC: HO.HUSH 14:23
PROVIDERS: PCP Internal Medicine; Visit Provider Urology
DX: E29.1 Testicular hypofunction (principal)
CPT/HCPCS: 99214

== ENCOUNTER → 2023-09-13 14:23 | Outpatient (BNVA) | payer OTHER, SELFPAY | PROVIDERS: PCP Internal Medicine; Visit Provider Urology ==

== ENCOUNTER 2024-01-30 09:39 | Outpatient (AMB) | payer OTHER, SELFPAY ==
--- NOTE | 2024-01-30 09:41 | MHC.OFFVIS ---
Intake Visit Reasons: med review Intake Note: Patient is Present for Telephone Follow Up Urology Med: Testosterone, Tamsulosin, Tadalafil, Sildenafil Antibiotic Allergy:None Blood Thinner: Aspirin Allergies NSAIDS (Non-Steroidal Anti-Inflamma Allergy (Unknown, Verified 01/30/24 09:41) Unknown shell fish Allergy (Severe, Uncoded 01/30/24 09:41) Swelling HPI Comments Details: Abhinav Chacon is a 48 year olf tamazight speaking male. He has been followed by Dr Todd for - hypogonadism - bladder outlet obstruction - erectile dysfunction in setting of diabetes Certified staff interpreter present. Here for telehealth follow up to review labs. Video Attempted Six-month follow-up Has been on daily tadalafil BPH management tamsulosin Continues with testosterone Hypogonadism: Had been taking Flomax for urinary weakness Now with retrograde ejaculation Dr. Todd Discussed use of Sudafed for tightening sphincter hypogonadism diagnosed December 2015 - switched to 0.6 cc once a week. Initial symptoms include erectile dysfunction Yes improved with T decreased libido Yes improved with T change in mood/depression Yes in muscle size/strength Yes increased fatigue/malaise Yes increased abdominal fat No tender breasts/gynecomastia No hair loss No osteopenia Laboratory results baseline, low, testosterone, normal, SHBG, low, calculated bioavailable testosterone , followup December 2015 with clomid increased, testosterone, increased, calculated bioavailable testosterone > 200, increased, estradiol, T:E ratio > 10 07/03 - , testosterone 182, , calculated bioavailable testosterone 132 10/04 T 135 day before injection, 04/03 176 day before shot, 09/03 253 day before shot, 10/06 T 405 PSA 0.5, 04/05 T 544 PSA 0.3 HCT 37, - 10/07 T 560 PSA 1.1 Hct 40, 03/07 t 1100, 05/08 T 361, 10/10 T 320 (Mon) therapy included-- 12/01 - SERM - clomiphene not covered by [facility] 07/03 - T 25mg 2x a week, 10/04 T - 35mg 2x a week, 04/04 35mg 2 x a week, 04/05 , injectable exogenous testosterone 70mg 2x a week - 11/08 T 0.6cc weekly Lower urinary tract symptoms Issues with his urination alpha sacha Urinary retention No longer needing CIC Erectile dysfunction Responsive to sildenafil Switched to daily tadalafil Plan- Depo Testosterone 120 mg (0.6 mL) Repeat Testosterone levels, FH, LH, fasting glucose PFSH Medical History Uncontrolled type 2 diabetes mellitus with hyperglycemia H/O urinary retention Leg pain Back pain Weight loss, intentional Diastolic dysfunction DANIE (obstructive sleep apnea) Chronic headaches IBS (irritable bowel syndrome) Hypertriglyceridemia Hepatic steatosis Obesity Smoker Psychogenic nonepileptic seizure HTN (hypertension) IDDM (insulin dependent diabetes mellitus) Hypogonadism in male Bipolar 1 disorder Spondylosis of lumbar region without myelopathy or radiculopathy Spondylosis of cervical region without myelopathy or radiculopathy Fibromyalgia Surgical History History of total right hip arthroplasty History of esophagogastroduodenoscopy (EGD) Hx of colonoscopy History of hip surgery Family History Mother Alzheimer's dementia Diabetes Father Arthritis Social History Household Members: None Alcohol intake: never Patient Tobacco Use Status: Current everyday Tobacco user Tobacco use type: Cigarette Cigarette Packs Per Day: 1 Cigarettes Per Day: 6 Years Smoked: 30 Review of Systems Const Denies chills and Denies fever(s) Card Reports no additional complaints and Denies syncope Resp Denies cough GI Denies abdominal pain and Denies heartburn Reports as per HPI and Denies change in libido Neuro Denies syncope Psych Denies change in libido Endo Denies change in libido Physical Exam Const General: cooperative, healthy appearing, comfortable and no acute distress Orientation/consciousness: patient oriented x3 HEENT Face and sinus: Yes normal facial exam Mouth: moist mucous membranes Neck Neck: Yes normal visual inspection, Yes full ROM and Yes trachea midline Chest Chest palpation & inspection: normal inspection of the chest Resp Effort & Inspection: normal respiratory effort, able to speak in complete sentences and no respiratory distress GI Inspection: Yes normal to inspection Back/Spine/Pelvis Cervical Spine: normal cervical lordosis Thoracic/Lumbar Spine: thoracic and lumbar spine normal to inspection Skin General skin exam: no rashes or lesions noted Neuro General: patient oriented x3, gait normal, tone normal and moves all extremities Extrem General: Yes normal to inspection and Yes capillary refill normal Telehealth Telehealth Location of provider rendering services: practice address Location of patient: address on file Patient Identification confirmed using: Name, : Yes Telehealth method: voice only Patient verbally consented to treatment: Yes Patient verbally consented to billing insurance company: Yes Patient informed of any privacy concerns related to visit: Yes Assessment & Plan Assessment & Plan (1) Erectile dysfunction associated with type 2 diabetes mellitus: Code(s): E11.69 - Type 2 diabetes mellitus with other specified complication; N52.1 - Erectile dysfunction due to diseases classified elsewhere Category: Medical (2) Hypogonadism in male: Code(s): E29.1 - Testicular hypofunction Category: Medical Plan Continue testosterone Six-month follow-up labs Patient Instructions: Imaging studies, laboratory and physical exam results were discussed and reviewed in detail. No major barriers to patient understanding were identified. An opportunity to ask questions regarding the treatment plan was provided. All questions were answered. The patient expressed understanding and agreement with the above treatment plan. The patient is aware they should contact our office by phone for worsening of their current condition or the appearance of new urologic symptoms. Compliance is encouraged with any medications and followup testing that is ordered. It is a privilege to participate in the urologic care of your patient. If you have any questions or concerns regarding treatment for the above conditions, or other urologic issues, please do not hesitate to contact me. The office telephone contact is [phone]. This note is constructed using voice recognition software. While every effort has been made to ensure accuracy scoop driver errors may have been included. Yours sincerely, Dr Natalio Todd MD, [facility] - Urology Providers of Expert, Compassionate Care for the Genitourinary System Coding Level of Care Code Est Pt Level 3 (42112) Diagnoses Erectile dysfunction associated with type 2 diabetes mellitus E11.69; N52.1 Hypogonadism in male E29.1
== END 2024-01-30 16:00 | disposition home or self-care (01) ==
LOC: HO.HUSH 09:39
PROVIDERS: PCP Internal Medicine; Visit Provider Urology
DX: E11.69 Type 2 diabetes mellitus with other specified complication (principal); N52.1 Erectile dysfunction due to diseases classified elsewhere; E29.1 Testicular hypofunction
CPT/HCPCS: 99213

== ENCOUNTER → 2024-01-30 09:39 | Outpatient (BNVA) | payer OTHER, SELFPAY | PROVIDERS: PCP Internal Medicine; Visit Provider Urology | DX: E29.1 Testicular hypofunction (principal); N32.0 Bladder-neck obstruction; E11.69 Type 2 diabetes mellitus with other specified complication; N52.1 Erectile dysfunction due to diseases classified elsewhere; Z79.899 Other long term (current) drug therapy | CPT/HCPCS: 99212 ==

== ENCOUNTER 2024-08-13 10:35 | Outpatient (REF) | payer OTHER, SELFPAY ==
[2024-08-15 02:43] LABS: Follicle Stimulating Hormone 7.3 mIU/mL (1.4-12.8); Lutenizing Hormone 9.6 mIU/mL (1.5-9.3)
[2024-08-24 14:59] LABS: Testosterone, Free 39.9 pg/mL (35.0-155.0); Testosterone, Total 275 ng/dL (250-1100)
== END 2024-08-13 10:36 | disposition home or self-care (01) ==
LOC: HO.10HDL 10:35
PROVIDERS: Visit Provider Urology
DX: E29.1 Testicular hypofunction (principal)
CPT/HCPCS: 36415; 83001; 83002; 84402; 84403

== ENCOUNTER 2024-10-03 10:38 | Outpatient (AMB) | payer OTHER, SELFPAY ==
--- NOTE | 2024-10-03 10:49 | A.OFFVIS_ITS ---
Intake Visit Reasons: follow up/labs(Set) Intake Note: Patient is present for F/U LABS Urology Medication:TESTOSTERONE,SILDENAFIL,TAMSULOSIN,TADALAFIL Antibiotic Allergy:NONE Blood Thinner:ASPIRIN Cigarette Making Examiner Required: No Allergies NSAIDS (Non-Steroidal Anti-Inflamma Allergy (Unknown, Verified 10/03/24 10:50) Unknown shell fish Allergy (Severe, Uncoded 10/03/24 10:50) Swelling HPI Comments Details: Abhinav Chacon is a 48 year olf belarusian speaking male. He has been followed by Dr Todd for - hypogonadism in setting of diabetes - bladder outlet obstruction - erectile dysfunction in setting of diabetes Certified stage set up worker present. Six-month follow-up testosterone visit Has been on daily tadalafil BPH management tamsulosin Continues with testosterone Had recent episode of pancreatitis and medications were stopped. Will restart. Labs - 08/11 - T 275 FT 39, LH 9.6 Current dose - 0.6cc weekly Hypogonadism: Had been taking Flomax for urinary weakness Now with retrograde ejaculation Dr. Todd Discussed use of Sudafed for tightening sphincter hypogonadism diagnosed December 2015 - switched to 0.6 cc once a week. Initial symptoms include erectile dysfunction Yes improved with T decreased libido Yes improved with T change in mood/depression Yes in muscle size/strength Yes increased fatigue/malaise Yes increased abdominal fat No tender breasts/gynecomastia No hair loss No osteopenia Laboratory results baseline, low, testosterone, normal, SHBG, low, calculated bioavailable testosterone , followup December 2015 with clomid increased, testosterone, increased, calculated bioavailable testosterone > 200, increased, estradiol, T:E ratio > 10 07/03 - , testosterone 182, , calculated bioavailable testosterone 132 10/04 T 135 day before injection, 04/03 176 day before shot, 09/03 253 day before shot, 10/06 T 405 PSA 0.5, 04/05 T 544 PSA 0.3 HCT 37, - 10/07 T 560 PSA 1.1 Hct 40, 03/07 t 1100, 05/08 T 361, 10/10 T 320 (Mon) therapy included-- 12/01 - SERM - clomiphene not covered by [facility] 07/03 - T 25mg 2x a week, 10/04 T - 35mg 2x a week, 04/04 35mg 2 x a week, 04/05 , injectable exogenous testosterone 70mg 2x a week - 11/08 T 0.6cc weekly Lower urinary tract symptoms Issues with his urination alpha sacha Urinary retention No longer needing CIC Erectile dysfunction Responsive to sildenafil Switched to daily tadalafil Plan- Depo Testosterone 120 mg (0.6 mL) Repeat Testosterone levels, FH, LH, fasting glucose PFSH Medical History Uncontrolled type 2 diabetes mellitus with hyperglycemia H/O urinary retention Leg pain Back pain Weight loss, intentional Diastolic dysfunction DANIE (obstructive sleep apnea) Chronic headaches IBS (irritable bowel syndrome) Hypertriglyceridemia Hepatic steatosis Obesity Smoker Psychogenic nonepileptic seizure HTN (hypertension) IDDM (insulin dependent diabetes mellitus) Hypogonadism in male Bipolar 1 disorder Spondylosis of lumbar region without myelopathy or radiculopathy Spondylosis of cervical region without myelopathy or radiculopathy Fibromyalgia Surgical History History of total right hip arthroplasty History of esophagogastroduodenoscopy (EGD) Hx of colonoscopy History of hip surgery Family History Mother Alzheimer's dementia Diabetes Father Arthritis Social History Household Members: None Alcohol intake: never Patient Tobacco Use Status: Current everyday Tobacco user Tobacco use type: Cigarette Cigarette Packs Per Day: 1 Cigarettes Per Day: 6 Years Smoked: 30 Review of Systems Const Denies chills and Denies fever(s) Card Reports no additional complaints and Denies syncope Resp Denies cough GI Denies abdominal pain and Denies heartburn Reports as per HPI and Denies change in libido Neuro Denies syncope Psych Denies change in libido Endo Denies change in libido Physical Exam Const General: cooperative, healthy appearing, comfortable and no acute distress Orientation/consciousness: patient oriented x3 HEENT Face and sinus: Yes normal facial exam Mouth: moist mucous membranes Neck Neck: Yes normal visual inspection, Yes full ROM and Yes trachea midline Chest Chest palpation & inspection: normal inspection of the chest Resp Effort & Inspection: normal respiratory effort, able to speak in complete sentences and no respiratory distress GI Inspection: Yes normal to inspection Back/Spine/Pelvis Cervical Spine: normal cervical lordosis Thoracic/Lumbar Spine: thoracic and lumbar spine normal to inspection Skin General skin exam: no rashes or lesions noted Neuro General: patient oriented x3, gait normal, tone normal and moves all extremities Extrem General: Yes normal to inspection and Yes capillary refill normal Assessment & Plan Assessment & Plan (1) Erectile dysfunction associated with type 2 diabetes mellitus: Code(s): E11.69 - Type 2 diabetes mellitus with other specified complication; N52.1 - Erectile dysfunction due to diseases classified elsewhere Category: Medical (2) Hypogonadism in male: Code(s): E29.1 - Testicular hypofunction Category: Medical Plan Six-month follow-up Orders: Orders Prostate Specific Antigen 6 Months E29.1 - Testicular hypofunction Testosterone, Total 6 Months E29.1 - Testicular hypofunction Complete Blood Count no Diff 6 Months E29.1 - Testicular hypofunction Medications: New needle (disp) 25 gauge (BD Regular Bevel Killen) As directed - for testosterone subcutaneous injection - may substitute with 22/23 gauge if needed 30 ea 0RF E29.1 - Testicular hypofunction syringe (disposable) (BD Luer-Homero Syringe) Testosterone injection weekly 30 ea 0RF E29.1 - Testicular hypofunction, E34.9 - Endocrine disorder, unspecified needle (disp) 18 G (BD Regular Bevel Killen) As directed - draw up testosterone 30 ea 0RF E29.1 - Testicular hypofunction Discontinued needle (disp) 22 G (BD Regular Bevel Killen) Discontinued Reason: Patient Completed Course As directed weekly 4 ea 5RF E29.1 - Testicular hypofunction syringe (disposable) (BD Luer-Homero Syringe) Discontinued Reason: Patient Completed Course As directed once per week 30 ea 1RF E29.1 - Testicular hypofunction needle (disp) 18 G (BD Regular Bevel Killen) Discontinued Reason: Patient Completed Course As directed one per week for testosterone injection 4 ea 5RF E29.1 - Testicular hypofunction Patient Instructions: Imaging studies, laboratory and physical exam results were discussed and reviewed in detail. No major barriers to patient understanding were identified. An opportunity to ask questions regarding the treatment plan was provided. All questions were answered. The patient expressed understanding and agreement with the above treatment plan. The patient is aware they should contact our office by phone for worsening of their current condition or the appearance of new urologic symptoms. Compliance is encouraged with any medications and followup testing that is ordered. It is a privilege to participate in the urologic care of your patient. If you have any questions or concerns regarding treatment for the above conditions, or other urologic issues, please do not hesitate to contact me. The office tel ephone contact is [phone]. This note is constructed using voice recognition software. While every effort has been made to ensure accuracy assistant hall director errors may have been included. Yours sincerely, Dr Natalio Todd MD, [facility] - Urology Providers of Expert, Compassionate Care for the Genitourinary System Coding Level of Care Code Est Pt Level 3 (92962) Diagnoses Erectile dysfunction associated with type 2 diabetes mellitus E11.69; N52.1 Hypogonadism in male E29.1
== END 2024-10-03 12:11 | disposition home or self-care (01) ==
PROVIDERS: PCP Internal Medicine; Visit Provider Urology
DX: E11.69 Type 2 diabetes mellitus with other specified complication (principal); N52.1 Erectile dysfunction due to diseases classified elsewhere; E29.1 Testicular hypofunction
CPT/HCPCS: 99213

== ENCOUNTER → 2024-10-03 10:38 | Outpatient (BNVA) | payer OTHER, SELFPAY | PROVIDERS: PCP Internal Medicine; Visit Provider Urology | DX: E29.1 Testicular hypofunction (principal); E11.69 Type 2 diabetes mellitus with other specified complication; N52.1 Erectile dysfunction due to diseases classified elsewhere | CPT/HCPCS: 99212 ==

== ENCOUNTER 2025-03-20 08:40 | Outpatient (REF) | payer OTHER, SELFPAY ==
--- OUTSIDE RECORDS SUMMARY | 2025-03-20 08:47 | XMS_ITS | Clinical Summary ---
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 01/09/2025 4:56 PM EDT [facility] Blood, Urine Negative Negative LAB URINALYSIS - AUTOMATED METHOD 01/09/2025 4:56 PM EDT [facility] Urine Urine specimen obtained by clean catch procedure / Unknown Non-blood Collection / Unknown 01/09/2025 4:18 PM EDT 01/09/2025 4:51 PM EDT us Rainer Casanova DO LAB URINE ORDERABLES Final Result Performing Organization Address City/[facility]/ZIP Co de Phone Number [facility] [address] [place] [address], [place] [phone] * Beta hydroxybutyrate (01/09/2025 2:08 PM EDT) Only the most recent of2 resultswithin the time period is included. Beta-Hydroxybu tyrate 0.6 0.2 - 2.8 mg/dL LAB CHEMISTRY METHOD 01/09/2025 2:56 PM EDT [facility] Blood Venous blood specimen / Unknown Venipuncture / Unknown 01/09/2025 2:08 PM EDT 01/09/2025 2:13 PM EDT us Rainer Casanova DO LAB BLOOD ORDERABLES Final Result Performing Organization Address City/[facility]/ZIP Co de Phone Number [facility] [address] [place] [address], [place] [phone] * (ABNORMAL) CBC auto differential (01/09/2025 2:08 PM EDT) Only the most recent of2 resultswithin the time period is included. WBC 10.2 4.8 - 10.8 K/[facility] LAB HEMETOLOGY METHOD 01/09/2025 2:20 PM EDT [facility] RBC 4.50 4.50 - 5.50 M/mcL LAB HEMETOLOGY METHOD 01/09/2025 2:20 PM EDT [facility] Hemoglobin 12.2(L) 13.5 - 17.5 g/dL LAB HEMETOLOGY METHOD 01/09/2025 2:20 PM EDT [facility] Hematocrit 37.2(L) 42.0 - 54.0 % LAB HEMETOLOGY METHOD 01/09/2025 2:20 PM [facility] MCV 83.0 79.0 - 98.0 FL LAB HEMETOLOGY METHOD 01/09/2025 2:20 PM [facility] MCH 27.2 27.0 - 32.0 pcg LAB HEMETOLOGY METHOD 01/09/2025 2:20 PM [facility] MCHC 32.8 32.0 - 37.0 g/dL LAB HEMETOLOGY METHOD 01/09/2025 2:20 PM [facility] RDW 14.5 11.0 - 15.0 % LAB HEMETOLOGY METHOD 01/09/2025 2:20 PM [facility] Platelets 165 130 - 400 K/mcL LAB HEMETOLOGY METHOD 01/09/2025 2:20 PM [facility] MPV 11.3(H) 7.0 - 11.0 [place] LAB HEMETOLOGY METHOD 01/09/2025 2:20 PM [facility] NRBC 0.0 <1.0 % LAB HEMETOLOGY METHOD 01/09/2025 2:20 PM [facility] NRBC Absolute 0.00 <0.10 K/mcL LAB HEMETOLOGY METHOD 01/09/2025 2:20 PM [facility] Neutrophils Relative 71.3 % LAB HEMETOLOGY METHOD 01/09/2025 2:20 PM [facility] Lymphocytes Relative 20.0 % LAB HEMETOLOGY METHOD 01/09/2025 2:20 PM [facility] Monocytes Relative 4.5 % LAB HEMETOLOGY METHOD 01/09/2025 2:20 PM [facility] Eosinophils Relative 1.9 % LAB HEMETOLOGY METHOD 01/09/2025 2:20 PM [facility] Basophils Relative 0.5 % LAB HEMETOLOGY METHOD 01/09/2025 2:20 PM [facility] Immature Granulocytes Relative 1.8 % LAB HEMETOLOGY METHOD 01/09/2025 2:20 PM [facility] Neutrophils Absolute 7.26(H) 1.50 - 7.00 K/mcL LAB HEMETOLOGY METHOD 01/09/2025 2:20 PM [facility] Lymphocytes Absolute 2.04 1.00 - 5.00 K/mcL LAB HEMETOLOGY METHOD 01/09/2025 2:20 PM [facility] Monocytes Absolute 0.46 0.20 - 1.00 K/mcL LAB HEMETOLOGY METHOD 01/09/2025 2:20 PM [facility] Eosinophils Absolute 0.19 0.00 - 0.50 K/mcL LAB HEMETOLOGY METHOD 01/09/2025 2:20 PM [facility] Basophils Absolute 0.05 0.00 - 0.20 K/mcL LAB HEMETOLOGY METHOD 01/09/2025 2:20 PM [facility] Immature Granulocytes Absolute 0.18(H) 0.00 - 0.03 K/mcL LAB HEMETOLOGY METHOD 01/09/2025 2:20 PM [facility] Blood Venous blood specimen / Unknown Venipuncture / Unknown 01/09/2025 2:08 PM EDT 01/09/2025 2:13 PM EDT Rainer Casanova DO LAB BLOOD ORDERABLES Final Result Performing Organization Address City/[facility]/ZIP Co de Phone Number [facility] [address] [place] [address], [place] [phone] * Osmolality (01/09/2025 2:08 PM EDT) Only the most recent of2 resultswithin the time period is included. Osmolality Cherie 294 280 - 300 mOsm/kg LAB CHEMISTRY METHOD 01/09/2025 3:16 PM EDT [facility] Blood Venous blood specimen / Unknown Venipuncture / Unknown 01/09/2025 2:08 PM EDT 01/09/2025 2:13 PM EDT Rainer Casanova DO LAB BLOOD ORDERABLES Final Result Performing Organization Address [facility] de Phone Number [facility] [address] [place] [address], [place] [phone] * Magnesium (01/09/2025 2:08 PM EDT) Only the most recent of2 resultswithin the time period is included. Magnesium 1.9 1.9 - 2.6 mg/dL LAB CHEMISTRY METHOD 01/09/2025 2:54 PM EDT [facility] Blood Venous blood specimen / Unknown Venipuncture / Unknown 01/09/2025 2:08 PM EDT 01/09/2025 2:13 PM EDT Rainer Casanova DO LAB BLOOD ORDERABLES Final Result Performing Organization Address [facility] Co de Phone Number [facility] [address] [place] [address], [place] [phone] * Lipase (01/09/2025 2:08 PM EDT) Only the most recent of2 resultswithin the time period is included. Lipase 20 13 - 75 unit/L LAB CHEMISTRY METHOD 01/09/2025 2:54 PM EDT [facility] Blood Venous blood specimen / Unknown Venipuncture / Unknown 01/09/2025 2:08 PM EDT 01/09/2025 2:13 PM EDT Rainer Casanova DO LAB BLOOD ORDERABLES Final Result [facility] [address] [place] [address], * (ABNORMAL) Venous blood gas (01/09/2025 2:08 PM EDT) Only the most recent of2 resultswithin the time period is included. pH, Antoni 7.37 7.32 - 7.42 pH 01/09/2025 2:15 PM EDT [facility] pCO2, Antoni 34(L) 41 - 51 mmHg 01/09/2025 2:15 PM EDT [facility] pO2, Antoni 58(H) 25 - 40 mmHg 01/09/2025 2:15 PM EDT [facility] HCO3, Venous 20.9(L) 22.0 - 26.0 mmol/L 01/09/2025 2:15 PM EDT [facility] O2 Sat, Antoni 92.5 % 01/09/2025 2:15 PM EDT [facility] Base Excess, Antoni -4.8(L) -2.0 - 2.0 mmol/L 01/09/2025 2:15 PM EDT [facility] Blood Venous blood specimen / Unknown Venipuncture / Unknown 01/09/2025 2:08 PM EDT 01/09/2025 2:12 PM EDT Rainer Casanova DO LAB BLOOD ORDERABLES Final Result [facility] [address] [place] [address], [place] [phone] * (ABNORMAL) Microalbumin creatinine urine ratio (10/16/2024 10:10 AM EST) Creatinine, Urine 15.0 mg/dL LAB CHEMISTRY METHOD 10/16/2024 12:14 PM EST [facility] Microalb, Ur <5.0 0.0 - 29.0 mg/L LAB CHEMISTRY METHOD 10/16/2024 12:14 PM EST [facility] Microalb/Creat Ratio <33(H) <30 mg/g creat LAB CHEMISTRY METHOD 10/16/2024 12:14 PM [facility] Urine Urine specimen obtained by clean catch procedure / Unknown Non-blood Collection / Unknown 10/16/2024 10:10 AM EST 10/16/2024 11:14 AM EST Yrn Ibrahim MD LAB URINE ORDERABLES Final Result [facility] [address] [place] [address], [place] [phone] * Hm HIV Screening (08/24/2011) Pathologist [facility] HIV Screening Abstracted Klever Hoang MD HEALTH MAINTENANCE Final Result from Last 3 Months or Most Recently Relevant to Health Maintenance Insurance [facility] MEDICAID ADVANTAGE Advance Directives * Full Code - Default (Latest Code Status on File) Date Activated Date Inactivated Comments 02/26/2025 12:12 PM 02/26/2025 9:40 PM This is ord er is used when code status has not been discussed with the patient, or code status is otherwise unknown/unconfirmed To update the patient's code status, place a code status order. Do not modify or discontinue any currently active code status orders. Care Teams Digital Campaign Manager Relationship Specialty Start Date End Date Camelia Baumann MD [address] [place] [address] PCP - General Internal Medicine 08/05/21
--- OUTSIDE RECORDS SUMMARY | 2025-03-20 08:47 | XMS_ITS | Encounter Summary ---
Author Organization [facility] Address [address] [place] [address] Phone Care Team Providers Care Geologist Petroleum Name Role Phone Camelia Baumann Primary Care Provider [phone] Encounter Details Date Type Department Care Team ([facility] Contact Info) Description 10/31/2023 Documentation Only [facility], [address] [place] [phone] Yrn Ibrahim MD [address] [place] [address] Social History Tobacco Use Types Packs/Day Years Used Date Smoking Tobacco: Never Assessed Sex and Gender Information Value Date Recorded Sex Assigned at Not on file Legal Sex Male 3:35 PM EST Gender Identity Not on file Sexual Orientation Not on file documented as of this encounter Plan of Treatment Not on file documented as of this encounter Visit Diagnoses Not on filedocumented in this encounter Care Teams Geologist Petroleum Relationship Specialty Start Date End Date Camelia Baumann [address] [place] [address] PCP - General Internal Medicine 09/09/21 documented as of this encounter
--- OUTSIDE RECORDS SUMMARY | 2025-03-20 08:47 | XMS_ITS | Data Portability ---
Author Organization [place] - [facility], Allergy Address [address] [address] Care Team Providers Care Supervisor Metal Cans Name Role Phone COTAMONTSE SHANKAR Primary Care Provider Assessment Encounter Date Assessment Date Assessment LastModified by Organization Details LastModified Time 02/06/2025 02/06/2025 49 year old male presents for preoperative evaluation of his vocal cords ahead of planned anterior cervical discectomy and fusion (ACDF) through [facility]. He had no issues with hoarseness or dysphagia following ACDF with right sided approach around 2006. Plan for this ACDF is left sided approach. Fiberoptic laryngoscopy today reveals normal vocal cord mobility bilaterally. He is cleared from ENT standpoint for surgery. [email or web address] Not available 02/06/2025 16:58:12 Plan of Treatment Reminders Order Date Submit Date Provider Last Modified By Organization Details Last Modified Time Details Appointments None record ed. Lab None record ed. Referral None record ed. Procedures None record ed. Surgeries None record ed. Imaging None record ed. Medication Orders None record ed. Patient TargetsNo targets recorded. Patient InstructionsNo instructions recorded. Reason for Referral None Reported. Problems Name Problem SNOMED Code Status Onset Date Resolution Date Notes Provider Name and Address Organization Details Recorded Time History of cervical spine fusion [id number] Active 2024 PRANAY HUMPHREY PA-C [address] [facility] [address], [place], [address], [place] - [facility] 16:58:26 Problem Notes None recorded. Procedures Surgical History Date Name Laterality Status Provider Name and Address Organization Details Recorded Time 02/06/2025 FOL_DP completed PRANAY HUMPHREY PA-C [address] [address], [place], [address], [facility] - [facility] 02/06/2025 16:56:27 Imaging Results None recorded. Procedure Notes None recorded. Medical Equipment None Reported. Allergies Allergen ID Allergen Name Allergen Category Reaction Reaction Severity Criticality Documentation Date Start Date Code Code System Note Provider Name and Address Organization Details Recorded Time [id number] shellfish derived food,medi cation Not available Not available Not available 02/06/2025 65061 UNK Nicki hernandez [place] - [facility] 14:09:20 Medications Name Sig Start Date Stop Date Status Note LastModified by Organization Details LastModified Time benztropine 0.5 mg tablet TAKE 1 TABLET BY MOUTH TWICE DAILY IN THE MORNING AND IN THE EVENING 02/06 completed Not Available Not Available Not Available tizanidine 2 mg tablet TAKE 1/2 TABLET BY MOUTH EVERY 8 HOURS NEEDED MUSCLE SPASM active Not Available Not Available No t Available trazodone 50 mg tablet TAKE 1/2 TO 1 TABLET BY MOUTH EVERY NIGHT AT BEDTIME FOR SLEEP 02/06 completed Not Available Not Available Not Available senna 8.6 mg tablet TAKE 1 TABLET BY MOUTH EVERY DAY AT BEDTIME WITH PLENTY OF WATER NEEDED FOR CONSTIPAT ION WHILE TAKING NARCOTIC 02/06 completed Not Available Not Available Not Available FreeStyle Lancets 28 gauge USE TO CHECK BLOOD SUGARS 3 TIMESD AILY active Not Available Not Available No t Available ondansetron HCl 4 mg tablet TAKE 1 TABLET BY MOUTH EVERY 8 HOURS NEEDED FOR NAUSEA AND VOMITING active Not Available Not Available No t Available hydroxyzine pamoate 50 mg capsule TAKE 1-2 CAPSULE BY MOUTH EVERY NIGHT AT BEDTIME NEEDED ANXIETY/S LEEP active Not Available Not Available No t Available omeprazole 40 mg capsule,del ayed release TAKE 1 CAPSULE BY MOUTH EVERY DAY active Not Available Not Available No t Available aspirin 81 mg tablet,heather yed release TAKE 1 TABLET BY MOUTH EVERY DAY. DO NOT CRUSH OR CHEW 02/06 completed Not Available Not Available Not Available acetaminoph en 500 mg tablet TAKE 2 TABLETS BY MOUTH EVERY 8 HOURS 02/06 completed Not Available Not Available Not Available sildenafil 100 mg tablet PLEASE SEE ATTACHED FOR DETAILED DIRECTION S active Not Available Not Available No t Available tamsulosin 0.4 mg capsule TAKE 1 CAPSULE ORALLY BEDTIME FOR 90 DAYS active Not Available Not Available No t Available amlodipine 10 mg tablet TAKE 1 TABLET BY MOUTH ONCE DAILY active Not Available Not Available No t Available cephalexin 500 mg capsule TAKE 1 CAPSULE BY MOUTH THREE TIMES A DAY FOR 7 DAYS active Not Available Not Available No t Available erythromyci n 5 mg/gram (0.5 %) eye ointment PLEASE SEE ATTACHED FOR DETAILED DIRECTION S active Not Available Not Available No t Available haloperidol 10 mg tablet TAKE 1 TABLET BY MOUTH EVERYDAY AT BEDTIME active Not Available Not Available No t Available benztropine 1 mg tablet TAKE 1 TABLET BY MOUTH TWICE DAILY active Not Available Not Available No t Available docusate sodium 100 mg capsule TAKE 1 CAPSULE BY MOUTH TWICE A DAY NEEDED FOR CONSTIPAT ION active Not Available Not Available No t Available gabapentin 300 mg capsule TAKE 2 CAPSULES BY MOUTH 3 TIMES A DAY active Not Available Not Available No t Available codeine sulfate 30 mg tablet TAKE 1 TABLET BY MOUTH EVERY 6 HOURS NEEDED NECK PAIN X28 DAYS CAN TAKE WITH TYLENOL 02/06 completed Not Available Not Available Not Available testosteron e cypionate 200 mg/mL intramuscul ar oil INJECT 0.6 ML (CC) INTRAMUSC ULARLY ONCE A WEEK. DISPOSE EXCESS 02/06 completed Not Available Not Available Not Available zolpidem 10 mg tablet TAKE 1 TABLET BY MOUTH EVERY NIGHT AT BEDTIME NEEDED 02/06 completed Not Available Not Available Not Available ondansetron 4 mg disintegrat ing tablet DISSOLVE 1 TABLET IN MOUTH EVERY 8 HOURS active Not Available Not Available No t Available fluticasone propionate 50 mcg/actuati on nasal spray,suspe nsion USE 2 SPRAY(S) IN EACH NOSTRIL ONCE DAILY active Not Available Not Available No t Available metformin ER 500 mg tablet,exte nded release 24 hr TAKE 1 TABLET BY MOUTH TWICE A DAY *NEW LOWER DOSE active Not Available Not Available No t Available oxycodone 5 mg tablet TAKE 1 TABLET BY MOUTH EVERY 4 TO 6 HOURS NEEDED FOR SEVERE PAIN 02/06 completed Not Available Not Available Not Available insulin lispro (U-100) 100 unit/mL subcutaneou s pen INJECT 10-35 UNITS SUBCUTANE OUSLY BEFORE MEALS BASED ON SLIDING SCALE active Not Available Not Available No t Available tadalafil 5 mg tablet TAKE 1 TABLET BY MOUTH ONCE DAILY FOR SEXUAL ACTIVITY active Not Available Not Available No t Available pregabalin 75 mg capsule TAKE 1 CAPSULE BY MOUTH TWICE DAILY active Not Available Not Available No t Available FreeStyle Lite Strips USE 1 STRIP 3 TIMES A DAY active Not Available Not Available No t Available cholecalcif desiree (vitamin D3) 1,250 mcg (50,000 unit) capsule TAKE 1 CAPSULE BY MOUTH ONCE A WEEK active Not Available Not Available No t Available Farxiga 10 mg tablet TAKE 1 TABLET BY MOUTH EVERY DAY IN THE MORNING active Not Available Not Available No t Available ivabradine 5 mg tablet TAKE 1 TABLET BY MOUTH TWICE A DAY active Not Available Not Available No t Available Corlanor 7.5 mg tablet TAKE 1 TABLET BY MOUTH TWICE A DAY active Not Available Not Available No t Available Tresiba FlexTouch U-200 insulin 200 unit/mL (3 mL) subcutaneou s pen INJECT 65 UNITS SUBCUTANE OUSLY ONCE DAILY active Not Available Not Available No t Available FreeStyle Aishwarya 2 Sensor kit USE DIRECTED TO CHECK GLUCOSE 4 TIMES DAILY. CHANGE SENSOR EVERY 14 DAYS active Not Available Not Available No t Available Trulicity 4.5 mg/0.5 mL subcutaneou s pen injector INJECT ONE PEN (0.5 ML) SUBCUTANE OUSLY EVERY 7 DAYS active Not Available Not Available No t Available Vitals Date Recorded Body height Body mass index (BMI) Body weight Provider Name and Address Organization Details Last Updated DateTime 02/06/2025 180.34 cm 27.9 kg/m2 72216.47 g Nicki Grewal [place] - [facility] 02/06/2025 14:12:01 Social History None recorded. Functional Status None recorded. Mental Status None recorded. Family History Nothing Reported. Medical History Condition Response Arthritis Y Hypertension Y Kidney Disease Y Past Encounters Encounter ID Performer Location Encounter Start Date Encounter Closed Date Diagnosis/Indication Diagnosis SNOMED-CT Code Diagnosis ICD10 Code Diagnosis Note [id number] PRANAY HUMPHREY PA-C [facility] [address] [place] [address] 02/06/2025 13:47:33 02/06/2025 14:34:55 History of cervical spine fusion [id number] 101 Z98.1 Health Concerns Section Related Observation LastModified by Organization Detai ls LastModified Time None Recorded Concern Status LastModified by Organization Details LastModified Time None Recorded Advance Directives Directive None Recorded Payers Insurance Date Sequence Insurance Name Policy Number Policy Barajas Covered Member ID Barajas Member ID Guarantor Name 02/13/2025 1 [employer] [place] [id number] Abhinav Chacon [id number] Abhinav Chacon 02/06/2025 2 [place] [facility] Abhinav Chacon [id number] Abhinav Chacon Notes Date Note Type Note Provider Name and Address Organization Details Recorded Time 02/06/2025 text/html 49 year old male presents for preoperative evaluation of his vocal cords ahead of planned anterior cervical discectomy and fusion (ACDF) through [facility]. He had no issues with hoarseness or dysphagia following ACDF with right sided approach around 2006. Plan for this ACDF is left sided approach. His girlfriend translates to Greek. They politely declined video interpreter and translator. MELA FARLEY MD [address] [place] [address], [phone], [place] - [facility] 02/08/2025 09:26:40
[2025-03-20 09:40] LABS: Hematocrit 38.6 % (42.0-52.0); Hemoglobin 11.9 g/dl (14.0-18.0); Mean Corpuscular HGB Conc 30.8 g/dl (31.0-36.0); Mean Corpuscular Hemoglobin 26.0 pg (27.0-33.0); Mean Corpuscular Volume 84.5 fL (80.0-98.0); NRBC Abs Auto 0.000 X10*3/uL (0.0-0.012); NRBC Pct Auto 0.0 /100WBC (0.0-0.2); Platelet Count 290 X10*3/uL (160-400); Red Blood Count 4.57 X10*6/uL (4.60-5.80); White Blood Count 15.2 X10*3/uL (4.8-10.8)
[2025-03-20 10:41] LABS: Prostate Specific Antigen 0.78 ng/mL (<0.05-4.0)
== END 2025-03-20 08:41 | disposition home or self-care (01) ==
LOC: HO.LAB 08:40
PROVIDERS: PCP Internal Medicine; Visit Provider Urology
DX: E29.1 Testicular hypofunction (principal); Z12.5 Encounter for screening for malignant neoplasm of prostate
CPT/HCPCS: 36415; 84153; 84403; 85027

== ENCOUNTER 2025-04-04 09:52 | Outpatient (AMB) | payer OTHER, SELFPAY ==
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
--- OUTSIDE RECORDS SUMMARY | 2025-04-04 10:07 | XMS_ITS | Encounter Summary ---
Author Organization [facility] Address [address] [place] [address] Phone Care Team Providers Care Slitter And Rewinder Machine Operator Name Role Phone Camelia Baumann Primary Care Provider [phone] Encounter Details Date Type Department Care Team ([facility] Contact Info) Description 10/31/2023 Documentation Only [facility] [place], [address] [facility] [phone] Yrn Ibrahim MD [address] [place] [address] Social History Tobacco Use Types [...] on filedocumented in this encounter Care Teams Slitter And Rewinder Machine Operator Relationship Specialty Start Date End Date Camelia Baumann [address] [place] [address] PCP - General Internal Medicine 09/09/21 documented as of this encounter
--- OUTSIDE RECORDS SUMMARY | 2025-04-04 10:08 | XMS_ITS | Data Portability ---
Author Organization [place] - [facility], Allergy Address [address] [address] Care Team Providers Care Limo Driver Name Role Phone COTAMONTSE SHANKAR Primary Care Provider [phone] Assessment Encounter Date Assessment Date Assessment LastModified by Organization Details LastModified Time 02/06/2025 02/06/2025 49 year old male presents for preoperative evaluation of his vocal cords ahead of planned anterior cervical discectomy and fusion (ACDF) through [facility]. He had no issues with [...] Recorded Time History of cervical spine fusion [id number] Active 2024 PRANAY HUMPHREY PA-C [address] [facility] [address], [place], [address], [place] - [facility] 16:58:26 Problem Notes None recorded. Procedures Surgical History Date Name Laterality Status Provider Name and Address Organization Details Recorded Time 02/06/2025 FOL_DP completed PRANAY HUMPHREY PA-C [address] [address], [place], [address], [facility] - [facility] 02/06/2025 16:56:27 Imaging Results None recorded. Procedure Notes None recorded. Medical Equipment None Reported. Allergies Allergen ID Allergen Name Allergen Category Reaction Reaction Severity Criticality Documentation Date Start Date Code Code System Note Provider Name and Address Organization Details Recorded Time [id number] shellfish derived food,medi cation Not available Not available Not available 02/06/2025 03258 UNK Nicki hernandez [place] - [facility] 14:09:20 Medications Name Sig Start Date Stop [...] Updated DateTime 02/06/2025 180.34 cm 27.9 kg/m2 42184.47 g Nicki Grewal [place] - [facility] 02/06/2025 14:12:01 Social History None recorded. Functional Status None recorded. Mental Status None recorded. Family History Nothing Reported. Medical History Condition Response Arthritis Y Hypertension Y Kidney Disease Y Past Encounters Encounter ID Performer Location Encounter Start Date Encounter Closed Date Diagnosis/Indication Diagnosis SNOMED-CT Code Diagnosis ICD10 Code Diagnosis Note [id number] PRANAY HUMPHREY PA-C [facility] on [address] [place] [address] 02/06/2025 13:47:33 02/06/2025 14:34:55 History of cervical spine fusion [id number] 101 Z98.1 Health Concerns Section Related Observation LastModified by Organization Detai ls LastModified Time None Recorded Concern Status LastModified by Organization Details LastModified Time None Recorded Advance Directives Directive None Recorded Payers Insurance Date Sequence Insurance Name Policy Number Policy Barajas Covered Member ID Barajas Member ID Guarantor Name 02/13/2025 1 [employer] [id number] Abhinav Chacon [id number] Abhinav Chacon 02/06/2025 2 [place] [facility] Abhinav Chacon [id number] Abhinav Chacon Notes Date Note Type Note Provider Name and Address Organization Details Recorded Time 02/06/2025 text/html 49 year old male presents for preoperative evaluation of his vocal cords ahead of planned anterior cervical discectomy and fusion (ACDF) through [facility]. He had no issues with hoarseness or dysphagia following ACDF with right sided approach around 2006. Plan for this ACDF is left sided approach. His girlfriend translates to Mongolian. They politely declined video retail account representative. MELA FARLEY MD [address] [place] [address], [id number], [place] - [facility] 02/08/2025 09:26:40
--- NOTE | 2025-04-04 10:22 | A.OFFVIS_ITS ---
Intake Visit Reasons: 6m/labs Intake Note: Patient is present for 6 mo follow up for ED and hypogonadism Urology Medication:TESTOSTERONE,SILDENAFIL,TAMSULOSIN,TADALAFIL,amitriptyline Antibiotic Allergy:NONE Blood Thinner:ASPIRIN Labs 03/20/2025 : PSA 0.78, Testosterone : 780 Surgical Supply Assistant Required: Yes Accompanied by: Self / Same As Patient Allergies NSAIDS (Non-Steroidal Anti-Inflamma Allergy (Unknown, Verified 04/04/25 10:24) Unknown shell fish Allergy (Severe, Uncoded 10/03/24 10:50) Swelling HPI Comments Details: Abhinav Chacon is a 48 year olf cambodian speaking male. He has been followed by Dr Todd for - hypogonadism in setting of diabetes - bladder outlet obstruction - erectile dysfunction in setting of diabetes Six-month follow-up testosterone visit Has been on daily tadalafil Continues with testosterone Lab work in range Labs - 08/11 - T 275 FT 39, LH 9.6, 04/11 T 780 P 0.8 Current dose - 0.6cc weekly Feels that he is having difficulty with urination despite tamsulosin. Had previously been on clean intermittent catheterization. Would like to go back on CIC and would estimate use of 3 catheters daily into the foreseeable future. Hypogonadism: Had been taking Flomax for urinary weakness Now with retrograde ejaculation Dr. Todd Discussed use of Sudafed for tightening sphincter hypogonadism diagnosed December 2015 - switched to 0.6 cc once a week. Initial symptoms include erectile dysfunction Yes improved with T decreased libido Yes improved with T change in mood/depression Yes in muscle size/strength Yes increased fatigue/malaise Yes increased abdominal fat No tender breasts/gynecomastia No hair loss No osteopenia Laboratory results baseline, low, testosterone, normal, SHBG, low, calculated bioavailable testosterone , followup December 2015 with clomid increased, testosterone, increased, calculated bioavailable testosterone > 200, increased, estradiol, T:E ratio > 10 07/03 - , testosterone 182, , calculated bioavailable testosterone 132 10/04 T 135 day before injection, 04/03 176 day before shot, 09/03 253 day before shot, 10/06 T 405 PSA 0.5, 04/05 T 544 PSA 0.3 HCT 37, - 10/07 T 560 PSA 1.1 Hct 40, 03/07 t 1100, 05/08 T 361, 10/10 T 320 (Mon) therapy included-- 12/01 - SERM - clomiphene not covered by [facility] 07/03 - T 25mg 2x a week, 10/04 T - 35mg 2x a week, 04/04 35mg 2 x a week, 04/05 , injectable exogenous testosterone 70mg 2x a week - 11/08 T 0.6cc weekly Lower urinary tract symptoms Issues with his urination alpha sacha Urinary retention No longer needing CIC Erectile dysfunction Responsive to sildenafil Switched to daily tadalafil Plan- Depo Testosterone 120 mg (0.6 mL) [facility] Medical History Uncontrolled type 2 diabetes mellitus with hyperglycemia H/O urinary retention Leg pain Back pain Weight loss, intentional Diastolic dysfunction DANIE (obstructive sleep apnea) Chronic headaches IBS (irritable bowel syndrome) Hypertriglyceridemia Hepatic steatosis Obesity Smoker Psychogenic nonepileptic seizure HTN (hypertension) IDDM (insulin dependent diabetes mellitus) Hypogonadism in male Bipolar 1 disorder Spondylosis of lumbar region without myelopathy or radiculopathy Spondylosis of cervical region without myelopathy or radiculopathy Fibromyalgia Surgical History History of total right hip arthroplasty History of esophagogastroduodenoscopy (EGD) Hx of colonoscopy History of hip surgery Family History Mother Alzheimer's dementia Diabetes Father Arthritis Social History Household Members: None Alcohol intake: never Patient Tobacco Use Status: Current everyday Tobacco user Tobacco use type: Cigarette Cigarette Packs Per Day: 1 Cigarettes Per Day: 6 Years Smoked: 30 Review of Systems Const Denies chills and Denies fever(s) Card Reports no additional complaints and Denies syncope Resp Denies cough GI Denies abdominal pain and Denies heartburn Reports as per HPI and Denies change in libido Neuro Denies syncope Psych Denies change in libido Endo Denies change in libido Physical Exam Const General: cooperative, healthy appearing, comfortable and no acute distress Orientation/consciousness: patient oriented x3 HEENT Face and sinus: Yes normal facial exam Mouth: moist mucous membranes Neck Neck: Yes normal visual inspection, Yes full ROM and Yes trachea midline Chest Chest palpation & inspection: normal inspection of the chest Resp Effort & Inspection: normal respiratory effort, able to speak in complete sentences and no respiratory distress GI Inspection: Yes normal to inspection Back/Spine/Pelvis Cervical Spine: normal cervical lordosis Thoracic/Lumbar Spine: thoracic and lumbar spine normal to inspection Skin General skin exam: no rashes or lesions noted Neuro General: patient oriented x3, gait normal, tone normal and moves all extremities Extrem General: Yes normal to inspection and Yes capillary refill normal Assessment & Plan Assessment & Plan (1) Urinary retention with incomplete bladder emptying: Code(s): R33.9 - Retention of urine, unspecified Category: Medical (2) Bladder outlet obstruction: Code(s): N32.0 - Bladder-neck obstruction Category: Medical (3) Hypogonadism in male: Code(s): E29.1 - Testicular hypofunction Category: Medical (4) Erectile dysfunction associated with type 2 diabetes mellitus: Code(s): E11.69 - Type 2 diabetes mellitus with other specified complication; N52.1 - Erectile dysfunction due to diseases classified elsewhere Category: Medical (5) Diabetic neuropathy associated with diabetes mellitus due to underlying condition: Code(s): E08.40 - Diabetes mellitus due to underlying condition with diabetic neuropathy, unspecified Category: Medical Plan Continue testosterone for hypogonadism Continue tadalafil for diabetic erectile dysfunction Has diabetic neuropathy with incomplete bladder emptying. Will need to restart clean intermittent catheterization 3 times per day. Orders: Orders Hematocrit 5 Months E29.1 - Testicular hypofunction Testosterone, Total 5 Months E29.1 - Testicular hypofunction Prostate Specific Antigen 5 Months E29.1 - Testicular hypofunction Medications: Refilled testosterone cypionate (Depo-Testosterone) dispose of excess T 120 mg (0.6 mL) subcut QWEEK 4 mL 5RF 4 weeks E29.1 - Testicular hypofunction tadalafil 5 mg PO DAILY 90 tabs 1RF sexual activity 90 days E29.1 - Testicular hypofunction, N52.01 - Erectile dysfunction due to arterial insufficiency Patient Instructions: This note is constructed using voice recognition software. While every effort has been made to ensure accuracy coat room attendant errors may have been included. Imaging studies, laboratory and physical exam results were discussed and reviewed in detail. No major barriers to patient understanding were identified. An opportunity to ask questions regarding the treatment plan was provided. All questions were answered. The patient expressed understanding and agreement with the above treatment plan. The patient is aware they should contact our office by phone for worsening of their current condition or the appearance of new urologic symptoms. Compliance is encouraged with any medications and followup testing that is ordered. It is a privilege to participate in the urologic care of your patient. If you have any questions or concerns regarding treatment for the above conditions, or other urologic issues, please do not hesitate to contact me. The office telephone contact is [phone]. Sincerely, Dr Natalio Todd MD, [facility] - Urology Compassionate Specialist Care for the Genitourinary System Coding Level of Care Code Est Pt Level 4 (62274) Complex EM visit Add On G2211 Diagnoses Urinary retention with incomplete bladder emptying R33.9 Bladder outlet obstruction N32.0 Hypogonadism in male E29.1 Erectile dysfunction associated with type 2 diabetes mellitus E11.69; N52.1 Diabetic neuropathy associated with diabetes mellitus due to underlying condition E08.40
== END 2025-04-04 10:56 | disposition home or self-care (01) ==
LOC: HO.HUSH 09:53
PROVIDERS: PCP Internal Medicine; Visit Provider Urology
DX: R33.9 Retention of urine, unspecified (principal); N32.0 Bladder-neck obstruction; E29.1 Testicular hypofunction; E11.69 Type 2 diabetes mellitus with other specified complication; N52.1 Erectile dysfunction due to diseases classified elsewhere; E08.40 Diabetes mellitus due to underlying condition with diabetic neuropathy, unspecified
CPT/HCPCS: 99214; G2211

== ENCOUNTER → 2025-04-04 09:52 | Outpatient (BNVA) | payer OTHER, SELFPAY | PROVIDERS: PCP Internal Medicine; Visit Provider Urology | DX: E29.1 Testicular hypofunction (principal); N32.0 Bladder-neck obstruction; R33.9 Retention of urine, unspecified; E11.69 Type 2 diabetes mellitus with other specified complication; N52.1 Erectile dysfunction due to diseases classified elsewhere | CPT/HCPCS: 99212 ==

== ENCOUNTER 2025-09-16 10:08 | Outpatient (REF) | payer OTHER, SELFPAY ==
[2025-09-16 10:53] LABS: Hematocrit 39.5 % (42.0-52.0)
[2025-09-16 12:11] LABS: Prostate Specific Antigen 0.55 ng/mL (<0.05-4.0)
--- OUTSIDE RECORDS SUMMARY | 2025-09-16 13:26 | XMS_ITS | Encounter Summary ---
Author Organization [facility] Address [address] [place] [address] Phone Care Team Providers Care Pad Making Machine Operator Name Role Phone Camelia Baumann Primary Care Provider Encounter Details Date Type Department Care Team (Late Contact Info) Description 01/16/2025 Documentation Only [facility] [address] [place] [address] [place] [address] [place] [phone] Social History Tobacco Use Types Packs/Day Years Used Date Smoking Tobacco: Unknown Sex and Gender Information Value Date Recorded Sex Assigned at Not on file Legal Sex Male 3:35 PM EST Gender Identity Not on file Sexual Orientation Not on file documented as of this encounter Plan of Treatment Upcoming Encounters Date Type Department Care Team (Late Contact Info) Description 10/07/2025 9:40 AM EST Office Visit [facility] [address] [place] [address] Yrn Ibrahim MD [address] [place] [address] [place] [address] documented as of this encounter Visit Diagnoses Not on filedocumented in this encounter Care Teams Pad Making Machine Operator Relationship Specialty Start Date End Date Camelia Baumann [address] [place] [address] PCP - General Internal Medicine 09/09/21 documented as of this encounter
--- OUTSIDE RECORDS SUMMARY | 2025-09-16 13:26 | XMS_ITS | Encounter Summary ---
Author Organization [facility] Address [address] [place] [address] Phone Care Team Providers Care Wild Animal Caretaker Name Role Phone Camelia Baumann Primary Care Provider Encounter Details Date Type Department Care Team (Late Contact Info) Description 02/02/2024 Documentation Only [facility] [address] [place] [address] [place] [address] [place] [phone] Social History Tobacco Use Types Packs/Day [...] Visit [facility] [address] [place] [address] Yrn Ibrahim MD [address] [place] [address] [place] [address] documented as of this encounter Visit Diagnoses Not on filedocumented in this encounter Care Teams Wild Animal Caretaker Relationship Specialty Start Date End Date Camelia Baumann [address] [place] [address] PCP - General Internal Medicine 09/09/21 documented as of this encounter
--- OUTSIDE RECORDS SUMMARY | 2025-09-16 13:26 | XMS_ITS | Encounter Summary ---
Author Organization [facility] Address [address] [place] [address] Phone Care Team Providers Care Grease And Tallow Pumper Name Role Phone Camelia Baumann Primary Care Provider Encounter Details Date Type Department Care Team (Late Contact Info) Description 10/17/2024 Documentation Only [facility] [address] [place] [address] [place] [address] [place] [phone] Social History Tobacco Use Types Packs/Day [...] Visit [facility] [address] [place] [address] Yrn Ibrahim MD [address] [place] [address] [place] [address] documented as of this encounter Visit Diagnoses Not on filedocumented in this encounter Care Teams Grease And Tallow Pumper Relationship Specialty Start Date End Date Camelia Baumann [address] [place] [address] PCP - General Internal Medicine 09/09/21 documented as of this encounter
--- OUTSIDE RECORDS SUMMARY | 2025-09-16 13:26 | XMS_ITS | Encounter Summary ---
Author Organization [facility] Address [address] [place] [address] Phone Care Team Providers Care Hand Shaper Name Role Phone Camelia Baumann Primary Care Provider Encounter Details Date Type Department Care Team (Late Contact Info) Description 10/19/2021 Documentation Only [facility] [address] [place] [address] Moriah Marquez [address] [place] [phone] Social History Tobacco Use Types Packs/Day [...] Visit [facility] [address] [place] [address] Yrn Ibrahim MD [address] [place] [address] [place] [address] documented as of this encounter Visit Diagnoses Not on filedocumented in this encounter Care Teams Hand Shaper Relationship Specialty Start Date End Date Cameila Baumann [address] [place] [address] PCP - General Internal Medicine 09/09/21 documented as of this encounter
--- OUTSIDE RECORDS SUMMARY | 2025-09-16 13:26 | XMS_ITS | Encounter Summary ---
Author Organization [facility] Address [address] [place] [address] Phone Care Team Providers Care Lawn Mower Sharpener Name Role Phone Camelia Baumann Primary Care Provider [phone] Encounter Details Date Type Department Care Team (Late Contact Info) Description 05/13/2024 Documentation Only [facility] [address] [place] [address] [place] [address] [place] [phone] Social History Tobacco Use Types Packs/Day [...] Visit [facility] [address] [place] [address] Yrn Ibrahim MD [address] [place] [address] [place] [address] documented as of this encounter Visit Diagnoses Not on filedocumented in this encounter Care Teams Lawn Mower Sharpener Relationship Specialty Start Date End Date Camelia Baumann [address] [place] [address] PCP - General Internal Medicine 09/09/21 documented as of this encounter
--- OUTSIDE RECORDS SUMMARY | 2025-09-16 13:26 | XMS_ITS | Encounter Summary ---
Author Organization [facility] Address [address] [place] [address] Phone Care Team Providers Care Attacher Name Role Phone Camelia Baumann Primary Care Provider Encounter Details Date Type Department Care Team (Late Contact Info) Description 07/10/2025 Documentation Only [facility] [address] [place] [address] [place] [address] [place] [phone] Social History Tobacco Use Types Packs/Day [...] [facility] [address] [place] [address] Yrn Ibrahim MD [address] [place] [address] [place] [address] documented as of this encounter Visit Diagnoses Not on filedocumented in this encounter Care Teams Attacher Relationship Specialty Start Date End Date Camelia Baumann [address] [place] [address] PCP - General Internal Medicine 09/09/21 documented as of this encounter
--- OUTSIDE RECORDS SUMMARY | 2025-09-16 13:26 | XMS_ITS | Encounter Summary ---
Author Organization [facility] Address [address] [place] [address] Phone Care Team Providers Care Athletic Field Custodian Name Role Phone Camelia Baumann Primary Care Provider Encounter Details Date Type Department Care Team (Late Contact Info) Description 10/17/2024 Documentation Only [facility] [address] [place] [address] [place] [address] [place] [phone] Social History Tobacco Use Types Packs/Day [...] Visit [facility] [address] [place] [address] Yrn Ibrahim MD [address] [place] [address] [place] [address] documented as of this encounter Visit Diagnoses Not on filedocumented in this encounter Care Teams Athletic Field Custodian Relationship Specialty Start Date End Date Camelia Baumann [address] [place] [address] PCP - General Internal Medicine 09/09/21 documented as of this encounter
--- OUTSIDE RECORDS SUMMARY | 2025-09-16 13:26 | XMS_ITS | Encounter Summary ---
Author Organization [facility] [place], Address [address] [place] [address] Phone Care Team Providers Care Solar Manufacturer'S Representative Name Role Phone Camelia Baumann Primary Care Provider Encounter Details Date Type Department Care Team (Late Contact Info) Description 10/31/2023 Documentation Only [facility] [address] [place] [address] Yrn Ibrahim MD [address] [place] [address] [place] [address] Social History Tobacco Use Types [...] Visit [facility] [address] [place] [address] Yrn Ibrahim MD [address] [place] [address] [place] [address] documented as of this encounter Visit Diagnoses Not on filedocumented in this encounter Care Teams Solar Manufacturer'S Representative Relationship Specialty Start Date End Date Camelia Baumann [address] [place] [address] PCP - General Internal Medicine 09/09/21 documented as of this encounter
--- OUTSIDE RECORDS SUMMARY | 2025-09-16 13:26 | XMS_ITS | Clinical Summary ---
Author Organization [facility], Address [address] [place] [address] [place] [address] Phone Care Team Providers Care Bowling Floor Manager Name Role Phone Camelia Baumann Primary Care Provider [phone] Allergies Active Allergy Reactions Criticality Noted Date Comments Acetaminophen 11/17/2023 Pt reports kidney and liver problems and states PCP does not want him taking any OTC medicaitons such as IBU, naproxen, tylenol Nsaids 10/15/2021 Pt reports kidney and liver problems and his PCP does not want him taking any OTC medicaitons such as IBU, naproxen or Tylenol Shellfish Allergy 10/15/2021 swelling Medications atorvastatin (LIPITOR) 40 MG tablet Take 40 mg by mouth 1 (one) time each day Active divalproex (DEPAKOTE) 500 MG 24 hr tablet Take 500 mg by mouth in the morning and 500 mg in the evening and 500 mg before bedtime. . Active fenofibrate (TRICOR) 54 MG tablet Take 54 mg by mouth 1 (one) time each day Active MELATONIN PO Take 10 mg by mouth at bed time Active mirtazapine (REMERON) 45 MG tablet Take 45 mg by mouth every night Active omeprazole (PriLOSEC) [address] capsule Take 40 mg by mouth 1 (one) time each day Do not crush or chew. Active propranolol (INDERAL) 80 MG tablet Take 80 mg by mouth in the morning and 80 mg in the evening. Active topiramate (TOPAMAX) 25 MG tablet Take one tablet every morning and three tablets at bedtime Active cloNIDine (CATAPRES) 0.1 MG tablet Take 0.1 mg by mouth in the morning and 0.1 mg in the evening and 0.1 mg before bedtime. In addition to 0.3 mg tablet TID. Active cloNIDine (CATAPRES) 0.3 MG tablet Take 0.3 mg by mouth in the morning and 0.3 mg in the evening and 0.3 mg before bedtime. In addition to 0.1 mg tablet TID. Active insulin glargine (LANTUS) 100 UNIT/ML injection As directed once daily every morning Active prazosin (MINIPRESS) 2 MG capsule Take 2 mg by mouth every night Take in addition to the 5 mg capsule for a total dose of 7 mg nightly Active prazosin (MINIPRESS) 5 MG capsule Take 5 mg by mouth every night Take in addition to the 2 mg capsule for a total dose of 7 mg nightly Active risperiDONE (RisperDAL) 3 MG tablet Take 3 mg by mouth at bed time Active amitriptyline (ELAVIL) 100 MG tablet Take 100 mg by mouth every night Active amLODIPine (NORVASC) 10 MG tablet Take 10 mg by mouth 1 (one) time each day Active aspirin (ST BRYSON) 81 MG EC tablet Take 81 mg by mouth 1 (one) time each day Active Insulin Lispro, 1 Unit Dial, 100 UNIT/ML solution pen-injector Inject three times daily before meals as directed per sliding scale Active meloxicam (MOBIC) 15 MG tablet Take 15 mg by mouth 1 (one) time each day Active Milnacipran HCl 100 MG tablet Take 100 mg by mouth at bed time Active busPIRone (BUSPAR) 10 MG tablet Take 10 mg by mouth in the morning and 10 mg at noon and 10 mg in the evening. Active fluticasone (FLONASE) 50 MCG/ACT nasal spray Administer into affected nostril(s) 09/25/19 24 Active FreeStyle Precision Nathanael Test test strip USE 1 STRIP TO CHECK GLUCOSE THREE TIMES DAILY 11/06/19 24 Active Tresiba FlexTouch 200 UNIT/ML injection INJECT 30 UNITS SUBCUTANEOUSLY ONCE DAILY ROTATE INJECTION SITES Active Corlanor 5 MG tablet Take 1 tablet by mouth every 12 (twelve) hours Active B-D ULTRAFINE III SHORT PEN 31G X 8 MM misc USE 1 PEN NEEDLE WITH LISPRO AND LANTUS PENS FIVE TIMES DAILY DIRECTED 09/25/19 24 Active metFORMIN (GLUCOPHAGE) 1000 MG tablet Take 1,000 mg by mouth 01/12/20 23 Active ondansetron ODT (ZOFRAN-ODT) 4 MG dispersible tablet DISSOLVE 1 TABLET IN MOUTH EVERY 8 HOURS FOR NAUSEA 10/19/19 24 Active Nicotrol NS 10 MG/ML solution USE 1 DOSE IN EACH NOSTRIL EVERY 2 HOURS NEEDED FOR SMOKING CESSATION Active metFORMIN XR (GLUCOPHAGE-XR) 500 MG 24 hr tablet Take 500 mg by mouth in the morning and 500 mg in the evening. 11/02/19 24 Active Lancets (freestyle) lancets USE 1 LANCET TO CHECK GLUCOSE THREE TIMES DAILY 09/25/19 24 Active EQ ClearLax 17 GM/SCOOP powder MIX 17 GRAMS OF POWDER IN 8 OUNCES OF WATER AND DRINK ONCE DAILY NEEDED FOR CONSTIPATION Active QUEtiapine (SEROquel) 50 MG tablet Take 50 mg by mouth 1 (one) time each day 11/02/19 24 Active sildenafil (VIAGRA) 100 MG tablet TAKE 1 TABLET BY MOUTH ONCE DAILY NEEDED FOR SEXUAL ACTIVITY ADMINISTER 60 MINUTES BEFORE INTENDED ACTIVITY by Dr. Todd 05/02/20 23 Active sodium bicarbonate 650 MG tablet Take 650 mg by mouth in the morning and 650 mg in the evening. 11/02/19 24 Active Carafate 1 g tablet Take 1 g by mouth 09/26/19 24 Active tamsulosin (FLOMAX) 0.4 MG 24 hr capsule Take 0.4 mg by mouth at bed time Active tiZANidine (ZANAFLEX) 2 MG tablet TAKE 1/2 (ONE-HALF) TABLET BY MOUTH EVERY 8 HOURS NEEDED FOR MUSCLE SPASMS (FOR FIBROMYALGIA) Active traZODone (DESYREL) 50 MG tablet Take 50 mg by mouth at bed time 11/02/19 24 Active Dapagliflozin Propanediol (Farxiga) 5 MG tablet Take 10 mg by mouth 1 (one) time each day in the morning 90 tablet 3 05/09/20 24 Active Dapagliflozin Propanediol (Farxiga) 10 MG tablet Take 10 mg by mouth 1 (one) time each day in the morning 90 tablet 3 06/21/20 24 Active Dulaglutide 4.5 MG/0.5ML solution pen-injector Inject 0.5 mL under the skin every 7 (seven) days 12 mL 3 06/21/20 24 Active folic acid (FOLVITE) 1 MG tablet Take 1 tablet (1 mg total) by mouth 1 (one) time each day 90 tablet 3 05/06/20 25 026 Active ergocalciferol 1.25 MG (54083 UT) capsule Take 1 capsule (50,000 Units total) by mouth 1 (one) time per week 5 capsule 11 05/06/20 25 Active Trulicity 4.5 MG/0.5ML solution auto-injector INJECT 0.5 ML UNDER THE SKIN EVERY 7 (SEVEN) DAYS 2 mL 06/02/20 25 Active lisinopril 40 MG tablet Take 1 tablet (40 mg total) by mouth 1 (one) time each day 90 tablet 3 07/08/20 25 026 Active Active Problems Problem Noted Date Diagnosed Date Acute pancreatitis 11/17/2023 Obstructive sleep apnea syndrome 11/17/2023 Overview (11/17/2023): -Regional -Regional Obese class II 11/17/2023 Type 2 diabetes mellitus 10/15/2021 Microalbuminuria 10/15/2021 Hypertension 10/15/2021 Hyperlipidemia 10/15/2021 Fibromyalgia 10/15/2021 Diastolic dysfunction 10/15/2021 Benign prostatic hyperplasia 10/15/2021 Acute nontraumatic kidney injury 10/15/2021 Hyponatremia 10/15/2021 Chronic kidney disease, stage 2 (mild) Encounters Date Type Department Care Team Description 07/10/2025 Documentation Only [facility], [address] [place] [address] Latia Toribio MA 07/08/2025 1:30 PM EDT Office Visit [facility], [address] [place] [address] Yrn Ibrahim MD Hypertension (Primary Dx) from Last 3 Months Immunizations Immunization Administration Dates Next Due Influenza Whole 07/06/2020 Influenza, Unspecified 09/06/2019,2017,07/03/2017,07/26/2016,12/10/2014,06/13/2014,08/06/2012,12/07/2007 Radha SARS-COV-2 12/25/2020 Moderna SARS-COV-2 07/10/2021 Pneumococcal Polysaccharide 04/16/2013, 8 Td, Unspecified 06/18/2002 Tdap 03/31/2022,07/03/2012 Family History Medical History Relation Comments Glaucoma Father HIV Father Alzheimer's disease Mother Hypertension Mother Relation Status Comments Father Mother Social History Tobacco Use Types Packs/Day Years Used Date Smoking Tobacco: Unknown Tobacco Cessation:Counseling Given: Not Answered Sex and Gender Information Value Date Recorded Sex Assigned at Not on file Legal Sex Male 3:35 PM EST Gender Identity Not on file Sexual Orientation Not on file Last Filed Vital Signs Vital Sign Reading Time Taken Comments Blood Pressure 131/84 01/20/2025 9:30 AM EDT Pulse 77 01/20/2025 9:30 AM EDT Temperature - - Respiratory Rate - - Oxygen Saturation - - Inhaled Oxygen Concentration - - Weight - - Height - - Body Mass Index - - Plan of Treatment Upcoming Encounters Date Type Department Care Team (Late st Contact Info) Description 10/07/2025 9:40 AM EST Office Visit [facility], [address] [place] [address] Yrn Ibrahim MD [address] [place] [phone] Health Maintenance Due Date Last Done Comments Hepatitis B Vaccine (1 of 3 - 19+ 3-dose series) 1994 04/09/2024 Pneumococcal Vaccine: 50+ Ye ars (3 of 3 - PCV) 04/16/2014 04/16/2013, 12/07/2007 Diabetes: Ophthalmology Exam 10/15/2021 Diabetes: Pedal Pulse Checked 10/15/2021 Diabetes: Sensory Foot Exam 10/15/2021 Diabetes: Visual Foot Exam 10/15/2021 Colorectal Cancer Screening: Annual FOBT 2024 Colorectal Cancer Screening: Sigmoidoscopy 2024 Diabetes: Hemoglobin A1C 09/30/2025 025, 01/16/2025, 10/22/2024, Additional history exists Colorectal Cancer Screening: Colonoscopy 08/19/2031 08/19/2021 Pneumococcal Vaccine: Peds ( 0 to 5 Years) and At-Risk Patients (6 to 49 Years) Discontinued 04/16/2013, 12/07/2007 Influenza Vaccine Completed 06/26/2025, , 07/06/2020, Additional history exists Procedures Procedure Name Priority Date/Time Associated Diagnosis Comments HEMOGLOBIN A1C Routine 06/30/2025 12:47 PM EDT Microalbuminuria from Last 3 Months Results * (ABNORMAL) Hemoglobin A1c (06/30/2025 12:47 PM EDT) Hemoglobin A1C 8.5(H) 4.8 - 5.6 % [facility] Comment: Prediabetes: 5.7 - 6.4 Diabetes: >6.4 Glycemic control for adults with diabetes: <7.0 Blood Venous blood / Unknown 06/30/2025 12:47 PM EDT 06/30/2025 us Yrn Ibrahim MD LAB BLOOD ORDERABLES Final Re sult [facility] [place] [address] [place] [phone] from Last 3 Months Insurance [facility] Medicaid [employer] Medicaid Care Teams Bowling Floor Manager Relationship Specialty Start Date End Date Camelia Baumann [address] [place] [address] PCP - General Internal Medicine 09/09/21
--- OUTSIDE RECORDS SUMMARY | 2025-09-16 13:26 | XMS_ITS | Encounter Summary ---
Author Organization [facility] Address [address] [place] [address] Phone Care Team Providers Care Livestock Judging Coach Name Role Phone Camelia Baumann Primary Care Provider Encounter Details Date Type Department Care Team (Late Contact Info) Description 02/08/2024 Documentation Only [facility] [address] [place] [address] [place] [address] [place] [phone] Social History Tobacco Use Types Packs/Day [...] Visit [facility] [address] [place] [address] Yrn Ibrahim MD [address] [place] [address] [place] [address] documented as of this encounter Visit Diagnoses Not on filedocumented in this encounter Care Teams Livestock Judging Coach Relationship Specialty Start Date End Date Camelia Baumann [address] [place] [address] PCP - General Internal Medicine 09/09/21 documented as of this encounter
--- OUTSIDE RECORDS SUMMARY | 2025-09-16 13:26 | XMS_ITS | Encounter Summary ---
Author Organization [facility] Address [address] [place] [address] Phone Care Team Providers Care Broke Beater Name Role Phone Camelia Baumann Primary Care Provider Encounter Details Date Type Department Care Team (Late Contact Info) Description 02/16/2023 Documentation Only [facility] [address] [place] [address] Moriah Marquez [address] [place] [phone] Social History Tobacco Use Types Packs/Day [...] Visit [facility] [address] [place] [address] Yrn Ibrahim MD [address] [place] [address] [place] [address] documented as of this encounter Visit Diagnoses Not on filedocumented in this encounter Care Teams Broke Beater Relationship Specialty Start Date End Date Camelia Baumann [address] [place] [address] PCP - General Internal Medicine 09/09/21 documented as of this encounter
--- OUTSIDE RECORDS SUMMARY | 2025-09-16 13:26 | XMS_ITS | Encounter Summary ---
Author Organization [facility], Address [address] [place] [address] Phone Care Team Providers Care Machine Hose Cutter Name Role Phone Camelia Baumann Primary Care Provider [phone] Encounter Details Date Type Department Care Team (Late Contact Info) Description 09/09/2021 Documentation Only [facility] [address] [place] [place] [address] Camelia Baumann [address] [place], [place] Social History Tobacco Use Types Packs/Day Years [...] Visit [facility] [address] [place] [phone] Yrn Ibrahim MD [address] [place] [address] [place] [phone] documented as of this encounter Visit Diagnoses Not on filedocumented in this encounter Care Teams Machine Hose Cutter Relationship Specialty Start Date End Date Camelia Baumann [address] [place] [address] PCP - General Internal Medicine 09/09/21 documented as of this encounter
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
== END 2025-09-16 10:09 ==
LOC: HO.LAB 10:08
PROVIDERS: PCP Internal Medicine; Visit Provider Urology
DX: E29.1 Testicular hypofunction (principal)
CPT/HCPCS: 36415; 84153; 84403; 85014